=== PATIENT | male | born 1945 | race Caucasian/White ===

== ENCOUNTER 2021-10-01 08:56 | Outpatient (REF) | payer MEDICARE, SELFPAY ==
[2021-10-01 11:21] LABS: MANUAL DIFF FLAG NO
[2021-10-01 11:35] LABS: Basophils Absolute Auto 0.1 X10*3/uL (0.0-0.2); Basophils Percent Auto 0.9 % (0-2); Eosinophils Absolute Auto 0.1 X10*3/uL (0.0-0.4); Eosinophils Percent Auto 2.2 % (0-4); Hemoglobin 14.6 g/dl (14.0-18.0); Imm Gran Abs Auto 0.03 X10*3/uL (0.00-0.03); Imm Gran Pct Auto 0.6 % (0.0-0.4); Lymphocytes Percent Auto 18.1 % (20-40); Mean Corpuscular Hemoglobin 30.8 pg (27.0-33.0); Mean Corpuscular Volume 90.7 fL (80.0-98.0); Monocytes Absolute Auto 0.4 X10*3/uL (0.1-1.2); Monocytes Percent Auto 7.6 % (2-11); Neutrophils Absolute Auto 3.8 x10*3/uL (2.0-8.3); Neutrophils Percent Auto 70.6 % (45-73); Platelet Count 264 X10*3/uL (160-400); Red Blood Count 4.74 X10*6/uL (4.60-5.80); Red Cell Distribution Width 12.5 % (11.0-16.0); White Blood Count 5.4 X10*3/uL (4.8-10.8)
[2021-10-01 11:46] LABS: Alanine Aminotransferase 36 U/L (0-40); Albumin Level 4.3 g/dL (3.5-5.0); Alkaline Phosphatase 64 U/L (39-117); Anion Gap 11 (12-20); Aspartate Amino Transferase 29 U/L (5-37); Bilirubin Total 0.9 mg/dL (0.0-1.0); Blood Urea Nitrogen 12 mg/dL (9-16); Calcium 9.3 mg/dL (8.4-10.2); Carbon Dioxide 24 mmol/L (22-29); Chloride 106 mmol/L (96-108); Cholesterol 204 mg/dL; Estimated Glomerular Filt Rate > 60; Glucose Fasting 105 mg/dL (60-99); HDL Cholesterol 75 mg/dL; LDL Cholesterol Calculated 114 mg/dl; Potassium 4.2 mmol/L (3.3-5.1); Sodium 137 mmol/L (135-145); Total Protein 6.8 g/dL (6.5-8.0); Triglycerides 77 mg/dL
[2021-10-01 12:31] LABS: PSA,Total (Free>4and<10) < 0.05 ng/mL (0.00-4.00); Vitamin D 25-OH Total 59.9 ng/mL (>30)
== END 2021-10-01 08:57 | disposition home or self-care (01) ==
LOC: HO.HMGCLDS 08:56
PROVIDERS: PCP Internal Medicine; Visit Provider Internal Medicine
DX: Z00.00 Encounter for general adult medical examination without abnormal findings (principal); Z12.5 Encounter for screening for malignant neoplasm of prostate; E78.00 Pure hypercholesterolemia, unspecified; I10 Essential (primary) hypertension; R00.2 Palpitations; Z85.46 Personal history of malignant neoplasm of prostate
CPT/HCPCS: 36415; 80053; 80061; 82306; 84153; 84443; 85025

== ENCOUNTER → 2021-11-07 09:19 | Outpatient (REF) | payer MEDICARE, OTHER, SELFPAY ==
--- NOTE | 2021-11-07 09:23 | ECG_ITS ---
Test Reason : R00.2 Blood Pressure : / mmHG Vent. Rate : 078 BPM Atrial Rate : 078 BPM P-R Int : 136 ms QRS Dur : 090 ms QT Int : 348 ms P-R-T Axes : 030 055 073 degrees QTc Int : 396 ms Normal sinus rhythm Normal ECG No previous ECGs available Referred By: Robert Vu Electronically Signed By:Hermes Hayes
--- NOTE | 2021-11-07 09:24 | CA_ITS ---
Transthoracic Echocardiogram Patient (Last, First, Middle): Jordan Sales A Gender: Male Date of : 1945 Age: 76 Procedure Date: 11/07/2021 Procedure Type: Transthoracic Echocardiogram Location: OP Height: 182.88 cm Weight: 86.18 kg BSA: 2.08 m2 Heart Rate: 74 bpm BP: 130 / 70 mmHg Topographic Computator: SB Referring MD: Robert Vu DO Service Support Representative: Jose Edward MD Symptoms: R00.2 PALPITATIONS Study Quality: Adequate ECG Rhythm: Sinus Conclusions: - 1. Normal LV systolic and diastolic function 2. Mild aortic regurgitation 3. Mildly dilated ascending aorta at 4 cm 4. No pericardial effusion Findings Left Ventricle Normal left ventricular size, thickness, and systolic function. The visually estimated ejection fraction is between 60-65%. Spectral Doppler is indicative of a normal filling pattern. Peak GLS is -18.5%, within normal limits Right Ventricle Normal right ventricular cavity size and systolic function. Atria Both atria are normal in size. There is a mobile atrial septum noted. There is no evidence of interatrial shunt. Aortic Valve Normal aortic valve structure and function. There is no aortic valve stenosis. There is mild aortic valve regurgitation. Mitral Valve Normal mitral valve structure and function. There is trace mitral valve regurgitation. There is no mitral valve stenosis. Pulmonic Valve The pulmonic valve is likely normal. Tricuspid Valve Likely normal tricuspid valve structure and function. Tricuspid regurgitation envelope is inadequate for calculation of right ventricular systolic pressure. Normal right atrial pressure. Great Vessels The pulmonary artery was not well visualized. There is mild dilatation of the ascending aorta measuring 4.00 cm. Venous The inferior vena cava is normal in size and collapses greater than 50% with inspiration. Pericardium/Pleural There is no evidence of pericardial effusion. Prior Study Comparison No prior study available for comparison. Measurements 2D Linear Measurements IVSd: 1.07 0.6-0.9/0.6-1.0 cm LVIDd: 4.66 3.9-5.3/4.2-5.9 cm LVIDd Index: 2.24 2.4-3.2/2.2-3.1 cm/m2 LVIDs: 3.06 2.0-3.6 cm LVPWd: 0.76 0.7-1.1 cm LA Diam: 3.90 2.7-3.8/3.0-4.0 cm LAIDs Index: 1.88 1.5-2.3 cm/m2 LV Mass: 178.53 67-162/88-224 g LV Mass Index: 85.83 43-95/49-115 g/m2 LVOT Diam: 2.50 3.0+(-)1.3 cm 2D Systolic Function EF 4C: 64.50 >55% EF 2C: 63.90 >55% EF BiP: 64.20 >55% Mitral Valve MV Pk E: 0.76 MV PK A: 0.66 MV Decel Time: 236.00 E/A: 1.10 E'Lateral: 9.03 E'Medial: 6.20 E/E' Med: 12.20 E/E' Lat: 8.40 PHT: 69.00 MVA PHT: 3.19 Decel Hettinger: 3.21 Aortic Valve AoV Pk Andreas: 1.23 AoV Mn Andreas: 0.78 AoV VTI: 0.26 AoV Pk Grad: 6.00 Aov Mn Grad: 3.00 MARTIN Cont.VTI: 4.36 LVOT LVOT Pk Andreas: 0.99 LVOT Mn Andreas: 0.68 LVOT VTI: 0.23 LVOT Pk Grad: 4.00 LVOT Mn Grad: 2.00 LVOT Diam: 2.50 LVOT Area: 4.91 Diastolic Function MV Pk E: 0.76 MV Pk A: 0.66 E/A: 1.10 E'Medial: 6.20 E/E' Med: 12.20 E' Laterial: 9.03 E/E' Lat: 8.40 Right Ventricle TAPSE (mm): 18.00 TVS' Andreas: 8.50 Tricuspid Valve RA Press: 3.00 Great Vessels Aorta Sinus of Valsalva: 4.00 2.0-3.5 cm Ao Asc: 4.00 2.1-3.4 cm Ao Arch: 3.20 Pulmonary Valve PV Pk Andreas: 0.81 Peak PV Grad: 3.00 Updated in Other Vendor System with Status of Final Jose Edward MD electronically signed on 11/07/2021 12:09:47 PM with status of Final
--- NOTE | 2021-11-07 09:25 | HM_ITS ---
TEST PERFORMED: Cardiac event monitoring. REQUESTING PHYSICIAN: Dr. Vu. ENROLLMENT PERIOD: 11/07/2021 to 11/30/2021, 23 days. INDICATION: Palpitations. FINDINGS: In the above monitoring period, underlying rhythm is sinus. Resting rate was 76 beats per minute. There were about 4 episodes of atrial fibrillation with rapid rate noted during this time. Some areas appear to be atrial flutter with rapid rate. Ventricular rate as much as 200/min. There are some aberrantly conducted beats as well. No symptoms documented. CONCLUSION: Study positive for multiple episodes of atrial fibrillation/flutter with rapid rate. Underlying rhythm is sinus. Kevin Hadley MD HS/MODL / [id number] MTDD
== END ==
LOC: HO.CARD 09:19
PROVIDERS: PCP Internal Medicine; Visit Provider Internal Medicine
DX: R00.2 Palpitations (principal)
CPT/HCPCS: 93005; 93270; 93306

== ENCOUNTER 2023-10-23 09:40 | Day surgery (SDC) | payer MEDICARE, OTHER, SELFPAY ==
--- NOTE | 2023-10-22 10:21 | HO.ANESPROP2 ---
Documented by User: Belkis Ventura NP 10/22/23 11:39 HPI - Anesthesia Eval Consult details Narrative: 77yo M for Colonoscopy Eliquis for afib. Follows [facility]. Stable at yearly office visit 04/2023 [facility] Past Medical History Medical History Prostate cancer Afib HLD (hyperlipidemia) HTN (hypertension) Surgical History Surgical History H/O inguinal hernia repair H/O colonoscopy (~2007) History of radical prostatectomy (~2005) Social History Social History Patient Tobacco Use Status: Never used Tobacco Use of substances other than those prescribed or required for medical reasons: No Are you DNR?: No Advance Directives: No Advance Directives Information Provided: Yes Meds Allergies Allergy/AdvReac Type Severity Reaction Status Date / Time No Known Allergies Allergy Verified 10/22/23 10:24 Home Medications ?Medication ?Instructions ?Recorded ?Confirmed ?Last Taken ?Type apixaban 5 mg tablet (Eliquis) 5 mg PO BID 10/22/23 10/23/23 10/20/23 History flecainide 50 mg tablet 50 mg PO BID 10/22/23 10/23/23 10/23/23 08:30 History lisinopril 10 mg tablet 10 mg PO DAILY 10/22/23 10/22/23 Unknown History metoprolol succinate 50 mg 50 mg PO DAILY 10/22/23 10/22/23 Unknown History tablet,extended release 24 hr simvastatin 20 mg tablet 20 mg PO BEDTIME 10/22/23 10/22/23 Unknown History Assessment and Plan Assessment Anesthesia Assessment: Chart Reviewed Documented by User: Kajal Menard MD 10/23/23 10:59 [facility] Past Medical History Medical History Prostate cancer Afib HLD (hyperlipidemia) HTN (hypertension) Surgical History Surgical History H/O inguinal hernia repair H/O colonoscopy (~2007) History of radical prostatectomy (~2005) History of Problems with Anesthesia: No Social History Social History Patient Tobacco Use Status: Never used Tobacco Use of substances other than those prescribed or required for medical reasons: No Are you DNR?: No Advance Directives: No Advance Directives Information Provided: Yes Meds Allergies Allergy/AdvReac Type Severity Reaction Status Date / Time No Known Allergies Allergy Verified 10/22/23 10:24 Home Medications ?Medication ?Instructions ?Recorded ?Confirmed ?Last Taken ?Type apixaban 5 mg tablet (Eliquis) 5 mg PO BID 10/22/23 10/23/23 10/20/23 History flecainide 50 mg tablet 50 mg PO BID 10/22/23 10/23/23 10/23/23 08:30 History lisinopril 10 mg tablet 10 mg PO DAILY 10/22/23 10/22/23 Unknown History metoprolol succinate 50 mg 50 mg PO DAILY 10/22/23 10/22/23 Unknown History tablet,extended release 24 hr simvastatin 20 mg tablet 20 mg PO BEDTIME 10/22/23 10/22/23 Unknown History Exam Airway Mallampati Class: III TM Dist: >3cm Neck ROM: Full Loose/Missing/Broken Teeth: No Heart: RRR Lungs: CTA Assessment and Plan Assessment Anesthesia Assessment: Anesthesia Plan Discussed Final Anesthetic Review History of Problems with Anesthesia: No NPO: Yes ASA Class: III Final Preanesthetic Review: Meds/Allgs Chart Reviewed, Consent Obtained/Reviewed and Anes Risks/Benef Reviewed Patient Risk: Intermediate Procedure Risk: Low Anesthetic Plan Anesthetic Plan: MAC: Disposition: Standard PACU
[2023-10-23 10:30] VITALS: BMI 23.2
[2023-10-23 10:46] VITALS: BP 132/81; PULSE 57; RESP 18; TEMP 36.6; O2SAT 98
[2023-10-23] MEDS: Lactated Ringers 1,000 ML 100 ML IVCONT (10:59)
[2023-10-23 12:19] VITALS: BP 103/45; PULSE 53; RESP 16; TEMP 36.1; O2SAT 99
--- NOTE | 2023-10-23 12:19 | P.BOP_ITS ---
Brief Operative Note Date of Service: 10/23/23 Pre-op diagnosis: + Cologuard Post-op diagnosis: other (Diverticulosis) Procedure: Colonoscopy to the cecum and TI Surgeon: Robert Thomas MD Anesthesia: MAC Was an Balance And Hairspring Assembler used for this Procedure?: No Estimated blood loss (mL): 0 Pathology: none sent Condition: stable Disposition: PACU
[2023-10-23 12:34] VITALS: BP 107/46; PULSE 54; RESP 18; TEMP 36.2; O2SAT 98
--- NOTE | 2023-10-23 12:34 | OP_ITS ---
DATE OF SERVICE: 10/23/2023 SURGEON: Robert Thomas MD INDICATIONS: Patient presents for evaluation of positive Cologuard test. Full consent has been obtained from him for this, including risks of bleeding and perforation. PREOPERATIVE DIAGNOSIS: Positive Cologuard test. POSTOPERATIVE DIAGNOSIS: PROCEDURE PERFORMED: Colonoscopy to the cecum and terminal ileum. ESTIMATED BLOOD LOSS: COMPLICATIONS: ANESTHESIA: Monitored anesthesia care. ASSISTANTS: SPECIMENS: POSTOPERATIVE DIAGNOSES: Positive Cologuard test, diverticulosis, and internal hemorrhoids. DESCRIPTION OF PROCEDURE: The patient was placed in the left lateral decubitus position. The digital rectal exam revealed no abnormalities. The Olympus video pediatric colonoscope was then entered into the rectum and advanced easily to the cecum. Once in the cecum, I did identify normal-appearing cecal pouch with appendiceal orifice and a normal-appearing ileocecal valve. The terminal ileum was cannulated and appeared normal. The scope was withdrawn back in the colon. The entire cecum and ileocecal valve appeared normal. The scope was slowly withdrawn assessing all mucosal surfaces carefully. Preparation was excellent. I did not visualize any sign of polyps, colitis, nor angiodysplasias. There was a mild amount of sigmoid diverticulosis. In the rectum, scope was retroflexed, visualizing internal hemorrhoids, but no other pathology. The rectal mucosa appeared normal. The scope was straightened and withdrawn from the patient. He tolerated the procedure well and was returned to the recovery area in stable condition. IMPRESSION: 1. Diverticulosis. 2. Internal hemorrhoids. PLAN: Given today's negative exam and his age, I do not think he will need any further screening colonoscopies in the future. He will, otherwise, see me on a p.r.n. basis. He was advised to resume his Eliquis today. This has been discussed with his . MD SAURABH Up/JOHN / [id number]
--- OUTSIDE RECORDS SUMMARY | 2023-10-29 06:33 | XMS_ITS | Patient Health Record ---
Author Organization [facility] Address [address] [place] [address] Care Team Providers Care Charge Preparation Technician Name Role Phone Robert Vu DO Primary Care Provider Unavail able Robert Thomas Unavailable [phone] ALLERGIES No Known Allergies REASON FOR REFERRAL No Information MEDICATIONS Medication SIG (Take, Route, Frequency, Duration) Notes Start Date End Date Status Flecainide Acetate 50 MG Oral for 90 Active Simvastatin 20mg Act gene Lisinopril 10 MG 1 tablet Orally Once a day Active Metoprolol Succinate ER 50 MG Oral for 90 Active Eliquis 5 MG Oral for 90 Activ e IMMUNIZATIONS Vaccine Route Administration Date Status Comme nts Influenza Unknown 01/20/2023 Administered SOCIAL HISTORY Sex Assigned At : Social History Observation Description Sex Assigned At Unknown Alcohol Screen Question Answer Notes Did you have a drink contain ing alcohol in the past year? Yes How often did you have a dri nk containing alcohol in the past year? 2 to 4 times a month (2 points) How many drinks did you have on a typical day when you were drinking in the past year? 1 or 2 drinks (0 point) How often did you have 6 or more drinks on one occasion in the past year? Never (0 point) Points 2 Interpretation Negative PROBLEMS Problem Type ICD Code Onset Dates Problem Status W/U Status Risk SNOMED Code Notes Problem Colon cancer screening (Z12.11) Active confirmed Colon can cer screening (128617336) Problem Personal history of colonic polyps (Z86.010) Active confirmed History of poly p of colon (situation) (142483006) Problem Current use of watermaster anticoagulation (Z79.01) Active confirmed Long-term current use of anticoagulant (499043408) Problem Colon cancer screening declined (Z53.20) Active confirmed Colon cancer screening declined (32653039534237) Problem Positive colorectal cancer screening using Cologuard test (R19.5) Active confirmed Abnormal feces (025530412) VITAL SIGNS Temperature 97.5 degrees Fahrenheit 09/29/2023 Blood pressure diastolic 00 mm Hg 09/29/2023 Height 72.50 in 09/29/2023 Blood pressure systolic 000 mm Hg 09/29/2023 Weight 178 lbs 09/29/2023 BMI 23.81 kg/m2 09/29/2023 Encounters Encounter Location Date Provider Diagnosis [facility] [address] [place], [place] [id number] [address] [facility] [place] [phone] 09/29/2023 Robert Thomas Personal history of colonic polyps Z86.010 ; Colon cancer screening Z12.11 ; Current use of watermaster anticoagulation Z79.01 and Colon cancer screening declined Z53.[address] [place] [phone] 10/16/2023 Robert Thomas Positive colorectal cancer screening using Cologuard test R19.5 ASSESSMENTS Encounter Date Diagnosis Assessment Notes Treatment Notes Treatment Clinical Notes 09/29/2023 Colon cancer screeni ng (ICD-10 - Z12.11) 09/29/2023 Personal history of colonic polyps (ICD-10 - Z86.010) Let me know the results of the Cologuard test either way. If positive then we would want to set up a colonoscopy over the phone. 10/16/2023 Positive colorectal cancer screening using Cologuard test (ICD-10 - R19.5) 09/29/2023 Current use of fpc anticoagulation (ICD-10 - Z79.01) 09/29/2023 Colon cancer screeni ng declined (ICD-10 - Z53.20) PLAN OF TREATMENT Future Test Test Name Order Date COLONOSCOPY 07/07/2012 COLONOSCOPY 10/17/2023 Insurance Providers Payer Name Payer Address Payer Phone Subscriber Number Group Number Insured Name Patient Relationship to Insured Coverage Start Date Coverage End Date MEDICARE OF [place] [address] [place] [address] [phone] [id number] BRITTNEYGALO KEARA Leach Self - patient is the insured [employer] [address] [place] [address] [phone] [id number] KEARA HICKS Self - patient is the insured MEDICAL (GENERAL) HISTORY Medical History History ICD Code Colonoscopy 05/24/2007-hyper plastic polyp; he had a tubular adenoma removed in 2002 on his initial screening colonoscopy. Prostate cancer in 2005-had surgery as b elow Hypertension Hyperlipidema Denies CO,DM,CVA,Lung disease,renal dise ase Afib-Dr. Martinez Negative colonoscopy in 2012 Surgical History Surgery Date(Month/Year) Left inguinal hernia surgery Radical prostatectomy for cancer 2005
--- OUTSIDE RECORDS SUMMARY | 2023-10-29 06:34 | XMS_ITS | Patient Health Record ---
Author Organization [facility] Address [address] [place] [address] Care Team Providers Care Ham Sawyer Name Role Phone CASI ALEX Primary Care Provider [phone] CASI ALEX MD Unavailable Unavailable ALLERGIES No Known Allergies REASON FOR REFERRAL No Information MEDICATIONS Medication SIG (Take, Route, Frequency, Duration) Notes Start Date End Date Status Metoprolol Succinate ER 50 MG 1 tablet Orally Once a day for 90 days Active Eliquis 5 MG 1 tablet Orally Twic e a day for 90 days Active Flecainide Acetate 50 mg TAKE 1 TABLET T WICE A DAY for 90 days Active Lisinopril 10 MG 1 tablet Orally Once a day for 90 days Active Simvastatin 20 MG 1 tablet in the even ing Orally Once a day for 90 days Active SOCIAL HISTORY Sex Assigned At : Social History Observation Description Sex Assigned At Unknown PROBLEMS Problem Type ICD Code Onset Dates Problem Status W/U Status Risk SNOMED Code Notes Problem Mixed hyperlipidemia (E78.2) Active confirmed Mixed hyperlipidemia (114791416) On statin Problem Essential (primary) hypertension (I10) Active confirmed Essential hypertension (63233615) Controlled on current medical therapy Problem Other specified cardiac arrhythmias (I49.8) Active confirmed Cardiac arrhythmia (115263806) Problem PAF (paroxysmal atrial fibrillation) (I48.0) Active confirmed Atrial fibrillation (66114518) On anticoagulation with Eliquis VITAL SIGNS Heart Rate 65 /min 09/07/2023 Blood pressure diastolic 64 mm Hg 09/07/2023 Height 73 in 09/07/2023 Blood pressure systolic 126 mm Hg 09/07/2023 Weight 171 lbs 09/07/2023 BMI 22.56 kg/m2 09/07/2023 Encounters Encounter Location Date Provider Diagnosis [facility] [address] [place] [address] 03/06/2023 CASI ALEX [facility] [address] [place] [address] 03/13/2023 CASI ALEX Essential (primary) hypertension I10 ; PAF (paroxysmal atrial fibrillation) I48.0 ; Mixed hyperlipidemia E78.2 and Ascending aortic aneurysm, unspecified whether ruptured I71.21 [facility] [address] [place] [address] 09/07/2023 CASI ALEX Essential (primary) hypertension I10 ; PAF (paroxysmal atrial fibrillation) I48.0 ; Mixed hyperlipidemia E78.2 and Ascending aortic aneurysm, unspecified whether ruptured I71.21 ASSESSMENTS Encounter Date Diagnosis Assessment Notes Treatment Notes Treatment Clinical Notes 03/13/2023 Essential (primary) hypertension (ICD-10 - I10) Controlled on current medical therapy 09/07/2023 Essential (primary) hypertension (ICD-10 - I10) Controlled on current medical therapy 09/07/2023 PAF (paroxysmal atrial fibrillation) (ICD-10 - I48.0) On anticoagulation with Eliquis 03/13/2023 PAF (paroxysmal atrial fibrillation) (ICD-10 - I48.0) On anticoagulation with Eliquis 03/13/2023 Mixed hyperlipidemia (ICD-10 - E78.2) On statin 09/07/2023 Mixed hyperlipidemia (ICD-10 - E78.2) On statin 09/07/2023 Ascending aortic aneurysm, unspecified whether ruptured (ICD-10 - I71.21) 4 cm on echo 03/13/2023 Ascending aortic aneurysm, unspecified whether ruptured (ICD-10 - I71.21) 4 cm on echo PLAN OF TREATMENT Next Appt Details Provider Name:CASI Terry, 02/29/2024 01:15:00 PM, [address], [place], [address], Insurance Providers Payer Name Payer Address Payer Phone Subscriber Number Group Number Insured Name Patient Relationship to Insured Coverage Start Date Coverage End Date MEDICARE PART B [address] [address] [place] [phone] [id number] Jordan Morales i Self - patient is the insured 1 [employer] [address] [place] [address] [id number] Jordan Morales i Self - patient is the insured MEDICAL (GENERAL) HISTORY Medical History History ICD Code HTN PAF, HPL Nuclear stress test done in July 2022 e vidence of any ischemia Surgical History Surgery Date(Month/Year) Prostate removal, hernia repair, knee me niscus Hospitalization History Reason Date(Month/Year) as above
--- OUTSIDE RECORDS SUMMARY | 2023-10-29 06:34 | XMS_ITS | Continuity of Care Document ---
Author Organization [facility] Address [address] [place] [address]- Care Team Providers Care Open Hearth Stockyard Supervisor Name Role Phone Robert Vu DO Primary Care Physician [place] [facility] [place]s): 02/18[place]22 - 03/20/22 [facility] [address] [place] [address]- Attending Physician: Morgan Floyd Admitting Physician: Morgan Floyd Referring Physician: Morgan Floyd Note * Event Display: EKG Non BH Authored Date: * Event Display: Non BH Cardiovascular Results Authored Date: Patient Care team information Care Team Personnel Name: Robert Vu DO Position: Reference Physician Member Role: PCP Address: Address: [address] [place] [address] [place] [address]
--- OUTSIDE RECORDS SUMMARY | 2023-10-29 06:34 | XMS_ITS | Continuity of Care Document ---
Author Organization [facility] Address [address] [place] [address] Care Team Providers Care Engineering Test Specialist Name Role Phone Robert Vu DO Primary Care Physician Encounter [facility] R [id number] Date(s): 11/26/21 - 03/20/22 [facility] [address] [place] [address]- Attending Physician: Radha Mcmahan MD Referring Physician: Robert Vu DO Patient Care team information Care Team Personnel Name: Robert Vu DO Position: Reference Physician Member Role: PCP Address: Address: [address] [place] [address] Robert Vu MD [place], [place] [address]
--- OUTSIDE RECORDS SUMMARY | 2023-10-29 06:34 | XMS_ITS | Patient Health Record ---
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 Name Role Phone MirellaRobert parsons Primary Care Provider ALLERGIES No Known Allergies RESULTS Component Value Reference Range Notes COLOGUARD Reviewed date:10/16/2023 09:59:23 AM Interpretation:Positive Performing Lab: Notes/Report: Positive Result Complete Blood Count Auto Di ff Reviewed date:10/27/2023 12:35:54 PM Interpretation:Abnormal Performing Lab:[facility], [address] [place] [phone] Notes/Report: White Blood Count 5.9 4.8-10.8 X10*3/uL Red Blood Count 4.51 4.60-5.80 X10*6/uL Hemoglobin 14.5 14.0-18.0 g/dl Hematocrit 40.8 42.0-52.0 % Mean Corpuscular Volume 90.5 80.0-98.0 fL Mean Corpuscular Hemoglobin 32.2 27.0-33.0 pg Mean Corpuscular HGB Conc 35.5 31.0-36.0 g/dl Red Cell Distribution Width 12.4 11.0-16.0 % Platelet Count 264 160-400 X10*3/uL Mean Platelet Volume 9.8 9.4-12.4 fL Neutrophils Percent Auto 67.8 45-73 % Imm Gran Pct Auto 0.3 0.0-0.4 % Lymphocytes Percent Auto 19.1 20-40 % Monocytes Percent Auto 8.5 2-11 % Eosinophils Percent Auto 3.6 0-4 % Basophils Percent Auto 0.7 0-2 % NRBC Pct Auto 0.0 0.0-0.2 /100WBC Neutrophils Absolute Auto 4.0 2.0-8.3 x10*3/u L Imm Gran Abs Auto 0.02 0.00-0.03 X10*3/uL Lymphocytes Absolute Auto 1.1 1.2-4.9 X10*3/u L Monocytes Absolute Auto 0.5 0.1-1.2 X10*3/uL Eosinophils Absolute Auto 0.2 0.0-0.4 X10*3/u L Basophils Absolute Auto 0.0 0.0-0.2 X10*3/uL NRBC Abs Auto 0.000 0.0-0.012 X10*3/uL Liver Panel Reviewed date:10/27/2023 01:09:39 PM Interpretation:Normal Performing Lab:[facility], [address] [place] [phone] Notes/Report: Bilirubin Total 0.7 0.0-1.0 mg/dL Bilirubin Direct 0.3 0.0-0.5 mg/dL Aspartate Amino Transferase 24 5-37 U/L Alanine Aminotransferase 21 0-40 U/L Total Protein 6.6 6.5-8.0 g/dL Albumin Level 4.2 3.5-5.0 g/dL Alkaline Phosphatase 64 39-117 U/L Basic Metabolic Panel Fastin g Reviewed date:10/27/2023 01:09:39 PM Interpretation:Normal Performing Lab:[facility], [address] [place] [phone] Notes/Report: Sodium 139 135-145 mmol/L Potassium 4.1 3.3-5.1 mmol/L Chloride 103 96-108 mmol/L Carbon Dioxide 26 22-29 mmol/L Anion Gap 14 12-20 Blood Urea Nitrogen 13 9-16 mg/dL Creatinine 0.78 0.5-1.4 mg/dL Estimated Glomerular Filt Rate > 60 NOTE: For -[place] individuals, multiply the result by 1.210. Chronic Kidney Disease: Estimated GFR < 60 mL/min/1.73m2 Severe Kidney Disease: Estimated GFR < 15 mL/min/1.73m2 Glucose Fasting 83 60-99 mg/dL Calcium 9.4 8.4-10.2 mg/dL Lipid Panel Reviewed date:10/27/2023 01:09:39 PM Interpretation:Normal Performing Lab:[address] [phone] Notes/Report: Triglycerides 86 <150 mg/dL Desirable Triglyceride: less than 150 mg/dL Borderline High Triglyceride 150-199 mg/dL High Triglyceride: 200-499 mg/dL Very High Triglyceride: greater than or equal to 5OO mg/dL Cholesterol 199 <200 mg/dL Desirable Cholesterol: less than 200 mg/dL Borderline High Cholesterol: 200-239 mg/dL High Cholesterol: greater than 239 mg/dL LDL Cholesterol Calculated 115 <100 mg/dL Desirable LDL: less than 100 mg/dL Near Optimal/Above Optimal LDL: 110-129 mg/dL Borderline High LDL: 130-159 mg/dL High LDL: 160-189 mg/dL Very High LDL: greater than or equal to 190 mg/dL HDL Cholesterol 67 >40 mg/dL Desirable HDL: greater than 40 mg/dL Note: This HDL assay may give artificially low results in patients with liver disease. Prostate Specific Antigen Reviewed date:10/27/2023 01:09:39 PM Interpretation:Undetectable Performing Lab:[address] [phone] Notes/Report: Prostate Specific Antigen < 0.10 <0.05-4.0 ng/mL PSA methodology: Jordan Alinity i Chemiluminescent Microparticle Immunoassay (CMIA) TSH reflex Free T4 Reviewed date:10/27/2023 01:09:39 PM Interpretation:Normal Performing Lab:[address] [phone] Notes/Report: TSH reflex Free T4 0.89 0.32-4.0 uIU/mL REASON FOR REFERRAL No Information MEDICATIONS Medication SIG (Take, Route, Frequency, Duration) Notes Start Date End Date Status Eliquis 5 MG 1 tablet Orally Twic e a day Active Metoprolol Succinate ER 50 MG 1 tablet Orally Once a day Active Vitamin D (Cholecalciferol) 25 MCG (1000 UT) 1 capsule Orally Once a day Active Lisinopril 10 MG 1 tablet Orally Once a day Active Ocuvite 1 tablet Orally Once a day Active Simvastatin 20 mg 1 tablet in the even ing Orally Once a day for 90 days Active Multivitamins 1 tablet Orally Once a day Active Ginkgo Biloba 120 MG 1 capsule Orally On ce a day Active Simvastatin 20 MG 1 tablet in the even ing Orally Once a day for 30 day(s) 09/23/2023 Active Flecainide Acetate 50 MG 1 tablet Orally Twice a day Active IMMUNIZATIONS Vaccine Route Administration Date Status Comme nts Influenza Unknown 03/10/2011 Administered Pneumococcal - PPSV23 IM Intramuscular 03/19/2011 Administ ered Influenza Unknown 03/07/2013 Administered Zoster Vaccine SC Subcutaneous 12/15/2014 Administered PCV 13 IM Intramuscular 11/07/2015 Administered Influenza Quad IM Intramuscular 03/26/2016 Administered Influenza High Dose IM Intramuscular 01/07/2018 Administer ed Influenza High Dose IM Intramuscular 02/01/2019 Administer ed Shingrix Unknown 03/22/2019 Administered Shingrix Unknown 01/01/2019 Administered Influnza High Dose Quad Unknown 01/18/2020 Administered Flu-aIIV4 Unknown 01/22/2021 Administered Influenza High Dose Unknown 01/27/2017 Administered Influenza High Dose IM Intramuscular 01/28/2022 Administer ed COVID-19 Pfizer Bivalent Unknown 02/05/2022 Administere d SOCIAL HISTORY Tobacco Use: Social History Observation Description Date Details (start date - stop date) Never Smoker NA - NA Sex Assigned At : Social History Observation Description Sex Assigned At Unknown Tobacco Use/Smoking Question Answer Notes Patient is a nonsmoker Additional Findings: Tobacco Non-User Cu rrent non-smoker, currently using no form of tobacco Alcohol Screen Question Answer Notes Did you have a drink contain ing alcohol in the past year? Yes How often did you have a dri nk containing alcohol in the past year? Monthly or less (1 point) How many drinks did you have on a typical day when you were drinking in the past year? 1 or 2 drinks (0 point) How often did you have 6 or more drinks on one occasion in the past year? Never (0 point) Points 1 Interpretation Negative PROBLEMS Problem Type ICD Code Onset Dates Problem Status W/U Status Risk SNOMED Code Notes Problem Paroxysmal atrial fibrillation (I48.0) Active confirmed 879576315 Problem Palpitations (R00.2) Active confirmed 8 2696221 Problem Essential hypertensi on (I10) Active confirmed 30073130 Problem History of prostate cancer (Z85.46) Active confirmed 085152303 Problem Hypercholesterolemia (E78.00) Active confirmed 13698790 Encounters Encounter Location Date Provider Diagnosis Robert Vu DO, [address] [id number] 11/18/2022 Robert Vu DO, [address] [id number] 12/09/2022 Robert Vu Paroxysmal atrial fibrillation I48.0 ; Essential hypertension I10 and Hypercholesterolemia E78.00 Robert Vu DO, [address] [id number] 09/23/2023 Robert uV Paroxysmal atrial fibrillation I48.0 ; Essential hypertension I10 ; Hypercholesterolemia E78.00 and History of prostate cancer Z85.46 Robert Vu DO, [address] [id number] 11/17/2022 Robert Vu DO, [address] [id number] 09/29/2023 Robert Vu Colon cancer screeni ng Z12.11 Robert Vu DO, [address] [id number] 10/16/2023 Robert Vu ASSESSMENTS Encounter Date Diagnosis Assessment Notes Treatment Notes Treatment Clinical Notes 12/09/2022 Paroxysmal atrial fibrillation (ICD-10 - I48.0) 12/09/2022 Essential hypertensi on (ICD-10 - I10) 09/23/2023 Paroxysmal atrial fibrillation (ICD-10 - I48.0) Follow up with Cardiology 09/23/2023 Essential hypertensi on (ICD-10 - I10) 09/29/2023 Colon cancer screeni ng (ICD-10 - Z12.11) 12/09/2022 Hypercholesterolemia (ICD-10 - E78.00) 09/23/2023 Hypercholesterolemia (ICD-10 - E78.00) 09/23/2023 History of prostate cancer (ICD-10 - Z85.46) PLAN OF TREATMENT Pending Test Test Name Order Date CBC With Differential/Platelet PSA, total 09/23/2023 Liver Panel 09/23/2023 Basic Metabolic Panel Fasting 09/23/2023 Lipid Panel 09/23/2023 TSH reflex Free T4 09/23/2023 Next Appt Details Provider Name:Robert davis, 03/29/2024 10:30:00 AM, [address] [place] [address], [id number], Insurance Providers Payer Name Payer Address Payer Phone Subscriber Number Group Number Insured Name Patient Relationship to Insured Coverage Start Date Coverage End Date MEDICARE [address] ROBERT QUINTERO [id number] [employer]francisco Jordan palafox Self - patient is the insured FOR LIFE [address] [place] [address] [id number] Hufrancisco Jordan palafox Self - patient is the insured [address] [address] [id number] Jordan Morales i Self - patient is the insured 8 9 MEDICAL (GENERAL) HISTORY Medical History History ICD Code hypertension hypercholesterolemia benign prostatic hyperplasia (BPH) prostate cancer tubular adenoma Palpitations R00.2 Paroxysmal atrial fibrillation I48.0 Surgical History Surgery Date(Month/Year) vasectomy herniorraphy, left prostatectomy, radical, nerv e sparing technique, frontal approach with suprapubic vertical incision left knee arthroscopy 03/2018
== END 2023-10-23 12:55 | disposition home or self-care (01) ==
PROVIDERS: PCP Internal Medicine; Visit Provider Internal Medicine
PROC: 0DJD8ZZ Inspection of Lower Intestinal Tract, Via Natural or Artificial Opening Endoscopic (ICD-10-PCS; CPT 45378; principal; 2023-10-23 11:10)
DX: R19.5 Other fecal abnormalities (principal); Z86.010 Personal history of colon polyps; K57.30 Diverticulosis of large intestine without perforation or abscess without bleeding; K64.8 Other hemorrhoids; I48.91 Unspecified atrial fibrillation; I10 Essential (primary) hypertension; Z79.01 Long term (current) use of anticoagulants; Z79.899 Other long term (current) drug therapy; Z85.46 Personal history of malignant neoplasm of prostate
CPT/HCPCS: 45378; J2704

== ENCOUNTER 2023-10-27 09:14 | Outpatient (REF) | payer MEDICARE, OTHER, SELFPAY ==
[2023-10-27 11:26] LABS: MANUAL DIFF FLAG NO
[2023-10-27 11:53] LABS: Basophils Percent Auto 0.7 % (0-2); Eosinophils Absolute Auto 0.2 X10*3/uL (0.0-0.4); Eosinophils Percent Auto 3.6 % (0-4); Hematocrit 40.8 % (42.0-52.0); Hemoglobin 14.5 g/dl (14.0-18.0); Imm Gran Abs Auto 0.02 X10*3/uL (0.00-0.03); Imm Gran Pct Auto 0.3 % (0.0-0.4); Lymphocytes Absolute Auto 1.1 X10*3/uL (1.2-4.9); Lymphocytes Percent Auto 19.1 % (20-40); Mean Corpuscular HGB Conc 35.5 g/dl (31.0-36.0); Mean Corpuscular Hemoglobin 32.2 pg (27.0-33.0); Mean Corpuscular Volume 90.5 fL (80.0-98.0); Mean Platelet Volume 9.8 fL (9.4-12.4); Monocytes Absolute Auto 0.5 X10*3/uL (0.1-1.2); Monocytes Percent Auto 8.5 % (2-11); Neutrophils Percent Auto 67.8 % (45-73); Platelet Count 264 X10*3/uL (160-400); Red Blood Count 4.51 X10*6/uL (4.60-5.80); Red Cell Distribution Width 12.4 % (11.0-16.0); White Blood Count 5.9 X10*3/uL (4.8-10.8)
[2023-10-27 12:44] LABS: Alanine Aminotransferase 21 U/L (0-40); Albumin Level 4.2 g/dL (3.5-5.0); Alkaline Phosphatase 64 U/L (39-117); Anion Gap 14 (12-20); Aspartate Amino Transferase 24 U/L (5-37); Bilirubin Direct 0.3 mg/dL (0.0-0.5); Bilirubin Total 0.7 mg/dL (0.0-1.0); Blood Urea Nitrogen 13 mg/dL (9-16); Calcium 9.4 mg/dL (8.4-10.2); Carbon Dioxide 26 mmol/L (22-29); Chloride 103 mmol/L (96-108); Cholesterol 199 mg/dL (<200); Estimated Glomerular Filt Rate > 60; Glucose Fasting 83 mg/dL (60-99); HDL Cholesterol 67 mg/dL (>40); LDL Cholesterol Calculated 115 mg/dL (<100); Potassium 4.1 mmol/L (3.3-5.1); Sodium 139 mmol/L (135-145); Total Protein 6.6 g/dL (6.5-8.0); Triglycerides 86 mg/dL (<150)
[2023-10-27 12:47] LABS: TSH reflex Free T4 0.89 uIU/mL (0.32-4.0)
[2023-10-27 12:49] LABS: Prostate Specific Antigen < 0.10 ng/mL (<0.05-4.0)
== END 2023-10-27 09:15 | disposition home or self-care (01) ==
LOC: HO.HMGCLDS 09:14
PROVIDERS: PCP Internal Medicine; Visit Provider Internal Medicine
DX: I48.0 Paroxysmal atrial fibrillation (principal); I10 Essential (primary) hypertension; E78.00 Pure hypercholesterolemia, unspecified; Z85.46 Personal history of malignant neoplasm of prostate; Z12.5 Encounter for screening for malignant neoplasm of prostate
CPT/HCPCS: 36415; 80048; 80061; 80076; 84153; 84443; 85025

== ENCOUNTER 2024-10-06 12:55 | Outpatient (AMB) | payer MEDICARE, OTHER, SELFPAY ==
[2024-10-06 13:00] VITALS: BP 135/66; PULSE 60; RESP 14; TEMP 36.6; O2SAT 99; BMI 23.7
--- NOTE | 2024-10-06 13:00 | A.OFFPC_ITS ---
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 Accompanied by: Self / Same As Patient Allergies No Known Allergies Allergy (Verified 10/06/24 13:18) Medication List - Last Reconciled 10/06/24 by Cary Chris PA-C apixaban (Eliquis) 5 mg PO BID flecainide 50 mg PO BID lisinopril 10 mg PO DAILY metoprolol succinate ER 50 mg PO DAILY simvastatin 20 mg PO BEDTIME Tobacco use date assessed: 10/06/24 Fall risk assessment: No Falls in past year Last assessed Fall Risk: 10/06/24 Dental Screening Dental Screen Date: 10/06/24 Did you have a dental visit in the last 12 months?: Yes Did you have a dental problem in the last 6 months where you did not have access to dental care?: No Was dental information given to patient?: Patient has dentist HPI 6 month follow up HPI Details The patient is a 78-year-old male presenting for an initial visit to establish care following his previous physician's residential. His medical history is significant for atrial fibrillation, managed with Eliquis and flecainide, and prostate cancer, for which he had a radical prostatectomy in 2005. The patient's history includes controlled hypertension and hyperlipidemia, managed with lisinopril and simvastatin, respectively. He was informed of mild anemia during blood work conducted in October 2023, though described as not clinically concerning at the time, and expresses understanding facilitated through regular monitoring. The patient acknowledges experiencing transient anxiety-induced hypertension during physician visits, historically a benign condition without sequela. Despite having previously been advised on blood pressure control, he now self- monitors and corroborates readings with multiple sources, including the [facility] and office administrator consultations, to assure consistency. His plan to obtain updated blood work, including hemoglobin A1c and potassium levels as a part of routine checks, underscores an ongoing commitment to managing cardiovascular risk factors within recommended guidelines. Social History - Spends winter in [place], living with his . - Visits family: two sons live in [facility] and [place]. - Assumed insurance coverage through the [facility] 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 - Maintains home blood pressure monitori ng. - Engaged in travel and lifestyle activi ties promoting social engagement. [facility] Medical History (Updated 10/06/24 @ 13:49 by Cary Chris PA-C) Anemia Full code status (~10/06/24) BPH (benign prostatic hyperplasia) Establishing care with new doctor, encounter for Prostate cancer Afib HLD (hyperlipidemia) HTN (hypertension) Surgical History H/O inguinal hernia repair H/O colonoscopy (~10/23/23) History of radical prostatectomy (~2005) Family History Father No problems noted. Mother No problems noted. Social History Housing: Condominium Alcohol intake: current Alcohol intake frequency: holidays/special occasions only Patient Tobacco Use Status: Never used Tobacco service: Yes Current occupational status: retired Cognitive needs: No Hearing needs: Yes (b/l hearing aids) Vision needs: Yes (rx glasses) Questionnaire PHQ-9 Over the last 2 weeks, how often have you been bothered by any of the following problems? 1. Little interest or pleasure in doing things: not at all 2. Feeling down, depressed, or hopeless: not at all 3. Trouble falling or staying asleep, or sleeping too much: not at all 4. Feeling tired or having little energy: not at all 5. Poor appetite or overeating: not at all 6. Feeling bad about yourself - or that you are a failure or have let yourself or your family down: not at all 7. Trouble concentrating on things, such as reading the newspaper or watching television: not at all 8. Moving or speaking so slowly that other people could have noticed. Or the opposite - being so fidgety or restless that you have been moving around a lot more than usual: not at all 9. Thoughts that you would be better off or of hurting yourself in some way: not at all Total score: 0 Depression Screening Interpretation: Negative Depression Screening Done: Yes 60676 - PHQ-9 Billing: Yes Source: Developed by Drs. Robert Chen, Lilibeth Pryor, Armand Westbrook and colleagues, with an educational beto from [employer]. Thrive Questionnaire Date Thrive assessed: 10/06/24 I am a: Patient What is your living situation today?: I have a steady place to live Within the past 12 months, did the food you bought not last and you didn't have the money to get more?: Never true Within the past 12 months, did you worry whether your food would run out before you got money to buy more?: Never true Do you have trouble paying for medicines?: No Do you have trouble getting transportation to medical appointments?: No Do you have trouble paying your heating and electricity bill?: No Do you have trouble taking care of your child, family member or friend?: No Do you have trouble with day-to-day activities such as bathing, preparing meals, shopping, managing finances, etc.?: No Are you currently unemployed and looking for a job?: No Are you interested in more education?: No Please select the resources that you would like help with: None THRIVE Score: 0 AUDIT C Alcohol Use Questionnaire (AUDIT-C) 1. How often do you have a drink containing alcohol?: Monthly or less 2. How many drinks containing alcohol do you have on a typical day when you are drinking?: 1 or 2 3. How often do you have six or more drinks on one occasion?: Never Total Score: 1 Score Reviewed/Action Taken: No TONY-7 AMB Questionnaire TONY-7 Date TONY - 7 assessed: 10/06/24 Feeling nervous, anxious, or on edge: 0 = Not at all Not being able to stop or control worryin = Not at all Worrying too much about different things: 0 = Not at all Trouble relaxin = Not at all Being so restless that it is hard to sit still: 0 = Not at all Becoming easily annoyed or irritable: 0 = Not at all Feeling afraid as if something awful might happen: 0 = Not at all Total TONY-7 score (0-4 normal; 5-9 mild; 10-14 moderate; 15-21 severe): 0 Source: Developed by Lilibeth May, Armand Westbrook and colleagues, with an educational beto from [employer]. TONY-7 Assessment Billing TONY-7 Assessment Tool: TONY-7 Assessment 07831 Review of Systems Const Details: - Cardiovascular: Reports historical anxiety-related hypertension. Denies chest pain, shortness of breath. - Gastrointestinal: Denies nausea, vomiting, abdominal pain, black or bloody stools. - Musculoskeletal: Denies falls. - General: Reports historical anxiety during doctor visits. Denies unintentional weight loss. Physical exam (Primary Care) Vital Signs: Last Vital Signs Temp 97.9 F 10/06/24 13:00 Pulse 60 10/06/24 13:00 Resp 14 10/06/24 13:00 BP 152/66 H 10/06/24 13:00 Pulse Ox 99 10/06/24 13:00 Oxygen Delivery Method Room Air 10/06/24 13:00 Care Plan Goal for BP management: <140/90 at Goal BMI result Body Mass Index 23.7 normal bmi Tobacco/Smoking Status: Tobacco use Status Tobacco use date assessed 10/06/24 10/06/24 13:09 Patient Tobacco Use Status Never used Tobacco 10/06/24 13:09 PHQ-9: PHQ-9 Score PHQ-9: Total score 0 10/06/24 13:09 Depression Screening Interpretation: Negative Thrive Assessment: Date of Thrive Assessment Date Thrive assessed 10/06/24 10/06/24 13:09 Advance Care Planning discussion: Completed/Scanned Date of discussion: 10/06/24 Who was present: Patient, Cary FANTA Forms completed: MOLST Time spent: 1-15 minutes, not on file Actual minutes spent: 15 Did not discuss due to Cultural/Spiritual beliefs: No Const Other: Appearance: Alert. Oriented X3. No acute distress. Head: Normal external exam. Normocephalic. Atraumatic. Eyes: Pupils are equal, round, and reactive to light. Extraocular movements intact. Conjunctiva and sclera normal. Eyelids normal. Ears: External auditory canal normal. Tympanic membranes normal. Throat: Pharynx normal. Uvula midline. Moist mucous membranes. Neck: Normal inspection. Neck supple. Full range of motion. No adenopathy. Thyroid Normal. No meningeal signs. No neck mass noted. Cardiovascular: Normal heart rate and rhythm. Heart sound normal. No murmurs noted. Pulses normal throughout. Respiratory: No respiratory distress. Painless inspiration. Breath sounds normal. No wheezes/rales/rhonchi noted. Chest nontender. No accessory muscle usage noted or decreased air movement noted. Abdomen: Soft and nontender. Bowel sounds normal in all 4 quadrants. No distention noted. No organomegaly noted. No visible injury noted. Back: No costovertebral angle tenderness. Full range of motion noted. Skin: Skin warm and dry. Normal skin color. Normal skin turgor. No rashes/lesions/lacerations noted. Extremities: No lower extremity edema. Extremities exhibit normal range of motion. Extremities nontender. Neuro: Oriented X 3. No motor deficit. No sensory deficit. Reflexes normal. Results Reviewed Results Reviewed: - Labs: Prior RBC count of 4.51 indicating mild anemia; cholesterol levels within managed range but close to upper limit of normal. - Blood glucose fasting levels previously measured at 83. Coding Level of Care Code New Pt Level 4 (72545) Complex EM visit Add On G2211 Diagnoses Establishing care with new doctor, encounter for Z76.89 HTN (hypertension) I10 HLD (hyperlipidemia) E78.5 Afib I48.91 Prostate cancer C61 BPH (benign prostatic hyperplasia) N40.0 Full code status Z78.9 Anemia D64.9 Additional Codes PHQ-9 - 98058 - PHQ-9 Billing: Yes ([id number]) TONY-7 Assessment Billing - TONY-7 Assessment Tool: TONY-7 Assessment 80898 ([id number]) Vital Signs *Quality* - Advance Care Planning discussion: Completed/Scanned ([id number]) Vital Signs *Quality* - Time spent: 1-15 minutes, not on file ([id number]) Time Spent (min) 60 Assessment & Plan Assessment & Plan (1) Establishing care with new doctor, encounter for: Code(s): Z76.89 - Persons encountering health services in other specified circumstances Category: Medical (2) HTN (hypertension): Code(s): I10 - Essential (primary) hypertension Category: Medical Plan: The condition is managed with Eliquis and flecainide. Continued adherence to medications and follow-up with cardiology are advised. Condition is chronic and stable continue to monitor. (3) HLD (hyperlipidemia): Code(s): E78.5 - Hyperlipidemia, unspecified Category: Medical Plan: Controlled with simvastatin. Routine lipid profile checks recommended. Condition is chronic and stable continue to monitor. (4) Afib: Code(s): I48.91 - Unspecified atrial fibrillation Category: Medical Plan: The condition is managed with Eliquis and flecainide. Continued adherence to medications and follow-up with cardiology are advised. IS CHRONIC AND STABLE CONTINUE TO MONITOR. (5) Prostate cancer: Code(s): C61 - Malignant neoplasm of prostate Category: Medical Plan: Past radical prostatectomy. Active surveillance with regular PSA monitoring. Condition is chronic and stable will continue to monitor. (6) BPH (benign prostatic hyperplasia): Code(s): N40.0 - Benign prostatic hyperplasia without lower urinary tract symptoms Category: Medical Plan: Condition is chronic and stable continue to monitor. (7) Full code status: Onset Date: ~10/06/24 Code(s): Z78.9 - Other specified health status Category: Medical Plan: Patient decided to be a full code today. Molst form filled out while patient in office. (8) Anemia: Code(s): D64.9 - Anemia, unspecified Category: Medical Plan: Mild anemia noted, with repeat blood work planned to rule out underlying causes. Condition is chronic and stable continue to monitor. Plan Plan Patient was informed and verbally consented to the use of an ambient scribe for clinic note documentation during this visit. 1. Atrial Fibrillation The condition is managed with Eliquis and flecainide. Continued adherence to medications and follow-up with cardiology are advised. 2. Hypertension Managed through lisinopril and metoprolol, with stable readings in home and clinical settings. No immediate changes needed. 3. History Of Prostate Cancer Past radical prostatectomy. Active surveillance with regular PSA monitoring. 4. Hyperlipidemia Controlled with simvastatin. Routine lipid profile checks recommended. 5. Anemia Mild Mild anemia noted, with repeat blood work planned to rule out underlying causes. 6. Anxiety Recognized anxiety exacerbating blood pressure at visits. Suggested lifestyle modifications to address anxiety and improve patient response in healthcare settings. During the visit, I discussed the current management plan for each of the patient?s conditions, emphasizing compliance and regular monitoring for atrial fibrillation, hypertension, and lipid management. We thoroughly reviewed the benefits and implications of continuing Eliquis and flecainide, noting their critical role in maintaining rhythm control and mitigating stroke risk. The patient was encouraged to maintain his current medication regimen, addressing any potential coordination issues with the office administrator pertaining to flecainide prescriptions. I provided reassurance regarding his mild anemia, describing it as clinically benign, and emphasized the importance of routine blood checks to preclude progressive anemia. For anxiety-induced episodic hypertension, lifestyle and relaxation techniques were suggested. I clarified the general intention of CPR and intubation policies, soliciting informed patient preferences regarding full code status. Moreover, I addressed potential adverse events related to interventions like intubation and feeding tubes and garnered consent based on patient familial consultations. Follow-up adherence with the cardiology regimen and engagement with scheduled lab tests were advised to substantiate our treatment's efficacy and enable progressive health optimization over subsequent encounters. Orders: Orders Comprehensive [place]. Panel Fast Today Z00.00 - Encounter for general adult medical examination without abnormal findings C Reactive Protein Today Z00.00 - Encounter for general adult medical examination without abnormal findings Lipid Panel Today Z00.00 - Encounter for general adult medical examination without abnormal findings Magnesium Today Z00.00 - Encounter for general adult medical examination witho ut abnormal findings Vitamin B12 and Folate Today Z00.00 - Encounter for general adult medical examination without abnormal findings PSA,Total (Free>4and<10) Today Z00.00 - Encounter for general adult medical examination without abnormal findings TSH reflex Free T4 Today Z00.00 - Encounter for general adult medical ex amination without abnormal findings Complete Blood Count Auto Diff Today Z00.00 - Encounter for general adult medical examination without abnormal findings Hemoglobin A1c Today Z00.00 - Encounter for general adult medical examination without abnormal findings Ferritin Today D64.9 - Anemia, unspecified IRON PROFILE Today D64.9 - Anemia, unspecified Liver Panel Today Z00.00 - Encounter for general adult medical examination without abnormal findings Vitamin D 25-OH Total Today Z00.00 - Encounter for general adult medical examination without abnormal findings Medications: Changed From flecainide 50 mg PO BID To flecainide 50 mg PO BID 90 days 180 tabs 3RF Patient Instructions: - Continue taking all prescribed medications, including Eliquis, flecainide, lisinopril, metoprolol, and simvastatin. - Schedule blood work as discussed, including CBC, CMP, hemoglobin A1c and lipid profile. - Record and monitor blood pressure at home. Take readings at rest and avoid measuring immediately after activity or stress. - Maintain regular follow-up appointments with cardiology and consider yearly check-ups along with scheduled [facility] visits. - Keep healthcare proxy documents and pertinent medical paperwork updated and accessible. - Engage in regular physical activity and maintain a balanced diet to support cardiovascular health. - Consider stress-reduction techniques if anxiety persists, especially during medical evaluations. - Seek medical attention if experiencing any new or worsening symptoms, such as severe chest pain or shortness of breath. - Proceed with scheduled laboratory tests to monitor cholesterol, blood cell c ounts, and kidney function.
--- OUTSIDE RECORDS SUMMARY | 2024-10-06 15:00 | XMS_ITS | Clinical Summary ---
Author Organization [facility] Address [address] [place] [address] Care Team Providers Care Cyber Security Instructor Name Role Phone Robert Vu DO Primary Care Provider [phone] Allergies No known active allergies Medications flecainide (TAMBOCOR) 50 mg tablet Take 1 Tablet by mouth 2 times daily. Active lisinopriL (PRINIVIL,ZESTRI L) 10 mg tablet Take 1 Tablet by mouth daily. Active metoprolol succinate (TOPROL-XL) 50 mg 24 hr tablet Take 50 mg by mouth daily. Active simvastatin (ZOCOR) 20 mg tablet Take 1 Tablet by mouth at bedtime. Active apixaban (ELIQUIS) 5 mg tablet Take 5 mg by mouth 2 Times Daily. Active Active Problems Problem Noted Date Diagnosed Date Bradycardia 04/16/2023 Bruit of right carotid artery 04/16/2023 Overview (05/30/2024): Last Assessment & Plan: The patient was noted to have a faint right-sided carotid bruit on exam today which is new for this patient. We discussed checking a carotid duplex for further evaluation of this; the patient would like to proceed with this test however he would like to delay it until he is back from [place] in September 2023. I have placed an order for this to be scheduled within that timeframe. We will continue statin as ordered and readdress as needed; his PCP checks cholesterol once per year and the patient reports that he has an appointment scheduled with him on his return from [place] in September 2023. We will continue to follow. Secondary hypercoagulable state (CMS/HCC V24) Essential hypertension 01/03/2022 Overview (05/30/2024): Last Assessment & Plan: The patient's blood pressure is well-controlled on current medical therapies; blood pressure was slightly elevated on initial check but was improved on recheck. The patient reports that he does not check his blood pressure at home however that in the past his blood pressures at medical visits have always been slightly elevated in comparison to home blood pressures. His metabolic panel was within normal limits when last checked in October 2022 via the patient's PCP who monitors this yearly. Will not make any changes to current medical therapies. Hypercholesteremia 01/03/2022 Palpitations 01/03/2022 Paroxysmal atrial fibrillation (CMS/HCC V24, CMS /HCC V28) 01/03/2022 Overview (05/30/2024): Last Assessment & Plan: The patient reports he has been doing very well and denies any palpitations since he was started on flecainide in August 2022, at which time he was seen by electrophysiology while he was in [place]. 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 He remains very active on a daily basis and denies any symptoms concerning for underlying ischemia or heart failure and appears euvolemic on exam. ECG in office today shows normal sinus rhythm with very mild bradycardia at 56 bpm; he denies any symptoms related to bradycardia. He is tolerating both flecainide and metoprolol well without any adverse effects; we will continue metoprolol for rate control and flecainide for rhythm control without change. The patient remains on Eliquis for cardioembolic prophylaxis; current dosing is appropriate for his age, weight, and renal function. We discussed the risks and benefits of continuing Eliquis for cardioembolic; he denies any issues with bleeding or bruising and would like to continue this medication at this time. He is aware to seek emergent medical attention for any uncontrolled bleeding, signs or symptoms of GI bleeding (which were reviewed with him today), or for any head injury. Surgical History Surgery Date Site/Laterality Comments VASECTOMY PROCEDURE: OH VASECTOMY UNI/BI SPX W/POSTOP SEMEN EXAMS OTHER SURGICAL HISTORY Left PROCEDURE: HISTORY OTHER; COMMENT: Herniorraphy OTHER SURGICAL HISTORY PROCEDURE: [place] ANES XTRPRTL LWR ABD W/URINARY TRACT RAD PRSTECT KNEE ARTHROSCOPY 03/2018 PROCEDURE: OH ARTHROSCOPY AID TX SPINE&/FX KNEE W/O FIXJ Medical History Medical History Date Comments BPH (benign prostatic hyperplasia) 01/03/2022 DX:BPH (benign prostatic hyperplasia) Prostate cancer (CMS/HCC V24 , CMS/HCC V28) DX:Prostate cancer (HCC) Tubular adenoma DX:Tubular adeno ma Social History Tobacco Use Types Packs/Day Years Used Date Smoking Tobacco: Never Smokeless Tobacco: Never Alcohol Use Standard Drinks/Week Comments Yes 0 (1 standard drink = 0.6 oz pur e alcohol) Sex and Gender Information Value Date Recorded Sex Assigned at Not on file Legal Sex Male 12:30 AM EST Gender Identity Not on file Sexual Orientation Not on file Obstetrics History Last Filed Vital Signs Vital Sign Reading Time Taken Comments Blood Pressure 132/62 04/16/2023 9:38 AM EST Sit ting L Arm Pulse 56 04/16/2023 9:13 AM EST Temperature - - Respiratory Rate - - Oxygen Saturation - - Inhaled Oxygen Concentration - - Weight 78.5 kg (173 lb) 04/16/2023 9:13 AM EST Height 182.9 cm (6') 04/16/2023 9:13 AM EST Body Mass Index 23.46 04/16/2023 9:13 AM EST Plan of Treatment Upcoming Encounters Date Type Department Care Team (Late st Contact Info) Description 11/09/2024 9:50 AM EDT Office Visit [facility] [address] [phone] Sharath Martinez MD [address] [address] Health Maintenance Due Date Last Done Comments COVID-19 Vaccine (#1) 1950 DTaP,Tdap,and Td Vaccines (1 - Tdap) 1964 Pneumococcal Vaccine: 50+ Ye ars (1 of 1 - PCV) 10/24/1995 Zoster Vaccines (1 of 2) 10/24/1995 RSV Immunization Adult Patie nts (1 - 1-dose 75+ series) 2020 Cholesterol Screening (Lipid Panel) 04/13/2022 Depression Screening 04/13/2022 Falls Risk Assessment 04/13/2022 Hepatitis C Screening 04/13/2022 Hypertension/CHF/CAD Annual BMP Blood Test 04/13/2022 Medicare Annual Wellness Visit 04/13/2022 Social Influencers of Health Screening 04/13/2022 Influenza Vaccine (Season Ended) 2025 HIB Vaccines Aged Out No longer eligi ble based on patient's age to complete this topic HPV Vaccines Aged Out No longer eligi ble based on patient's age to complete this topic Hepatitis A Vaccines Aged Out No long er eligible based on patient's age to complete this topic Hepatitis B Vaccines Aged Out No long er eligible based on patient's age to complete this topic IPV Vaccines Aged Out No longer eligi ble based on patient's age to complete this topic MMR Vaccines Aged Out No longer eligi ble based on patient's age to complete this topic Meningococcal ACWY Vaccine Aged Out N o longer eligible based on patient's age to complete this topic Meningococcal B Vaccine Aged Out No l onger eligible based on patient's age to complete this topic RSV Immunization Patients Un patricia 20 months Aged Out No longer eligible b ased on patient's age to complete this topic Varicella Vaccines Aged Out No longer eligible based on patient's age to complete this topic Insurance MEDICARE [facility] Care Teams Cyber Security Instructor Relationship Specialty Start Date End Date Robert Vu DO [address] [place] [phone] PCP - General Internal Medicine 12/02/21
== END 2024-10-06 13:42 | disposition home or self-care (01) ==
LOC: HO.HMCSH 12:55
PROVIDERS: PCP Internal Medicine; Visit Provider Physician Assistant Medical
DX: Z76.89 Persons encountering health services in other specified circumstances (principal); I10 Essential (primary) hypertension; E78.5 Hyperlipidemia, unspecified; I48.91 Unspecified atrial fibrillation; C61 Malignant neoplasm of prostate; N40.0 Benign prostatic hyperplasia without lower urinary tract symptoms; Z78.9 Other specified health status; D64.9 Anemia, unspecified; Z00.00 Encounter for general adult medical examination without abnormal findings

== ENCOUNTER → 2024-10-06 12:55 | Outpatient (BNVA) | payer MEDICARE, OTHER, SELFPAY | PROVIDERS: PCP Internal Medicine; Visit Provider Physician Assistant Medical | DX: I10 Essential (primary) hypertension (principal); E78.5 Hyperlipidemia, unspecified; I48.91 Unspecified atrial fibrillation; C61 Malignant neoplasm of prostate; N40.0 Benign prostatic hyperplasia without lower urinary tract symptoms; D64.9 Anemia, unspecified; Z78.9 Other specified health status; Z76.89 Persons encountering health services in other specified circumstances | CPT/HCPCS: 96127; 99202 ==

== ENCOUNTER 2024-10-25 09:07 | Outpatient (REF) | payer MEDICARE, OTHER, SELFPAY ==
--- OUTSIDE RECORDS SUMMARY | 2024-10-25 09:41 | XMS_ITS | Clinical Summary ---
Author Organization [facility] Address [address] [place] [address] Care Team Providers Care Adjudication Specialist Name Role Phone Robert Vu DO Primary Care Provider [phone] Allergies No known active allergies Medications flecainide [...] delay it until he is back from [place] in September 2023. I have placed an order for this to be scheduled within that timeframe. We will continue statin as ordered and readdress as needed; his PCP checks cholesterol once per year and the patient reports that he has an appointment scheduled with him on his return from [place] in September 2023. We will continue to [...] seen by electrophysiology while he was in [place]. 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 He remains very [...] History Surgery Date Site/Laterality Comments VASECTOMY PROCEDURE: VA VASECTOMY UNI/BI SPX W/POSTOP SEMEN EXAMS OTHER SURGICAL HISTORY Left PROCEDURE: HISTORY OTHER; COMMENT: Herniorraphy OTHER SURGICAL HISTORY PROCEDURE: VA ANES XTRPRTL LWR ABD W/URINARY TRACT RAD PRSTECT KNEE ARTHROSCOPY 03/2018 PROCEDURE: VA ARTHROSCOPY AID TX SPINE&/FX KNEE W/O FIXJ [...] Description 11/09/2024 9:50 AM EDT Office Visit [facility] [address] [id number] Sharath Martinez MD [address] [address] Health Maintenance Due Date Last Done Comments COVID-19 Vaccine (#1) 1950 DTaP,Tdap,and Td Vaccines (1 - Tdap) 1964 Zoster Vaccines (1 of 2) 1964 Pneumococcal Vaccine: 50+ Ye ars (1 of 1 - PCV) 10/24/1995 RSV Immunization Adult Patie nts (1 [...] age to complete this topic Insurance [facility]ARE [facility] Care Teams Adjudication Specialist Relationship Specialty Start Date End Date Robert Vu DO [address] [place] [id number] PCP - General Internal Medicine 12/02/21
[2024-10-25 10:01] LABS: MANUAL DIFF FLAG NO
[2024-10-25 10:11] LABS: Basophils Absolute Auto 0.1 X10*3/uL (0.0-0.2); Basophils Percent Auto 1.2 % (0-2); Eosinophils Absolute Auto 0.2 X10*3/uL (0.0-0.4); Eosinophils Percent Auto 2.9 % (0-4); Hematocrit 41.2 % (42.0-52.0); Hemoglobin 14.1 g/dl (14.0-18.0); Imm Gran Abs Auto 0.02 X10*3/uL (0.00-0.03); Imm Gran Pct Auto 0.4 % (0.0-0.4); Lymphocytes Percent Auto 20.2 % (20-40); Mean Corpuscular HGB Conc 34.2 g/dl (31.0-36.0); Mean Corpuscular Hemoglobin 31.1 pg (27.0-33.0); Mean Corpuscular Volume 90.7 fL (80.0-98.0); Mean Platelet Volume 9.4 fL (9.4-12.4); Monocytes Absolute Auto 0.4 X10*3/uL (0.1-1.2); Monocytes Percent Auto 7.6 % (2-11); Neutrophils Absolute Auto 3.5 x10*3/uL (2.0-8.3); Neutrophils Percent Auto 67.7 % (45-73); Platelet Count 239 X10*3/uL (160-400); Red Blood Count 4.54 X10*6/uL (4.60-5.80); Red Cell Distribution Width 12.3 % (11.0-16.0); White Blood Count 5.2 X10*3/uL (4.8-10.8)
[2024-10-25 10:17] LABS: Estimated Average Glucose 100 mg/dL; Hemoglobin A1c % 5.1 % (<6.0); Total Hemoglobin (HGBA1C) 3622.5754 umol/L
[2024-10-25 10:38] LABS: Alanine Aminotransferase 25 U/L (0-40); Albumin Level 4.4 g/dL (3.5-5.0); Alkaline Phosphatase 60 U/L (39-117); Anion Gap 11 (12-20); Aspartate Amino Transferase 28 U/L (5-37); Bilirubin Direct 0.3 mg/dL (0.0-0.5); Bilirubin Total 0.7 mg/dL (0.0-1.0); Blood Urea Nitrogen 13 mg/dL (9-16); C Reactive Protein 0.11 mg/dL (< or = 0.50); Calcium 9.4 mg/dL (8.4-10.2); Carbon Dioxide 26 mmol/L (22-29); Chloride 106 mmol/L (96-108); Cholesterol 207 mg/dL (<200); Estimated Glomerular Filt Rate > 60; Glucose Fasting 106 mg/dL (60-99); HDL Cholesterol 71 mg/dL (>40); Iron 144 mcg/dL (45-160); LDL Cholesterol Calculated 119 mg/dL (<100); Magnesium 2.1 mg/dL (1.6-2.6); Percent Iron Saturation 64 % (15-50); Potassium 5.1 mmol/L (3.3-5.1); Sodium 138 mmol/L (135-145); Total Iron Binding Capacity 224 mcg/dL (228-428); Total Protein 6.5 g/dL (6.5-8.0); Triglycerides 88 mg/dL (<150); Unsaturated Iron Binding 80 ug/dL
[2024-10-25 10:41] LABS: Ferritin 604 ng/mL (20-250); TSH reflex Free T4 0.94 uIU/mL (0.32-4.0); Vitamin D 25-OH Total 81.7 ng/mL (>30)
[2024-10-25 10:48] LABS: PSA,Total (Free>4and<10) < 0.10 ng/mL (0.00-4.00)
[2024-10-25 10:59] LABS: Folate 14.4 ng/mL (> or = 4.0); Vitamin B12 576 pg/mL (200-900)
== END 2024-10-25 09:08 | disposition home or self-care (01) ==
LOC: HO.HMGCLDS 09:07
PROVIDERS: Visit Provider Physician Assistant Medical
DX: Z00.00 Encounter for general adult medical examination without abnormal findings (principal); D64.9 Anemia, unspecified; Z12.5 Encounter for screening for malignant neoplasm of prostate; Z13.1 Encounter for screening for diabetes mellitus; Z13.220 Encounter for screening for lipoid disorders
CPT/HCPCS: 36415; 80053; 80061; 80076; 82248; 82306; 82607; 82728; 82746; 83036; 83540; 83735; 84153; 84443; 85025; 86140

== ENCOUNTER 2025-02-23 14:32 | Outpatient (AMB) | payer MEDICARE, OTHER, SELFPAY ==
[2025-02-23 14:36] VITALS: BP 119/60; PULSE 102; TEMP 36.4; O2SAT 95
--- NOTE | 2025-02-23 14:36 | A.OFFPC_ITS ---
Vital Signs 02/23/25 14:36 Height 6 ft BP 119/60 Blood Pressure Location Rt brachial Position Sitting Pulse 102 H Pulse Source Pulse Oximeter Temp 97.5 F Temp Source Temporal Artery Scan Pulse Oximetry (%) 95 Oxygen Delivery Method Room Air Intake Visit Reasons: Pain post hip replacement Intake Note: Patient tripped and fell on left side while on vacation in [facility], Hip surgery was done 02/18/25 in [facility] Supervisor Knitting Required: No Accompanied by: Spouse Allergies No Known Allergies Allergy (Verified 02/23/25 17:02) Medication List - Last Reconciled 02/23/25 by Cary Chris PA-C acetaminophen (Tylenol Extra Strength) 1,000 mg (2 x 500 mg) PO BID PRN enoxaparin (Lovenox) 40 mg (0.4 mL) subcut DAILY flecainide 50 mg PO BID 90 days lisinopril 10 mg PO DAILY metoprolol succinate ER 50 mg PO DAILY simvastatin 40 mg PO BEDTIME trazodone 50 mg PO BEDTIME PRN Tobacco use date assessed: 02/23/25 Fall risk assessment: 1 Fall in past year Last assessed Fall Risk: 02/23/25 Dental Screening Dental Screen Date: 02/23/25 Did you have a dental visit in the last 12 months?: Yes Did you have a dental problem in the last 6 months where you did not have access to dental care?: No Was dental information given to patient?: Patient has dentist HPI Pain post hip replacement HPI Details The patient is a 79-year-old male presenting with follow-up care after a left total hip replacement surgery. The patient experienced a fall in [facility], resulting in a hip fracture on February 16. He underwent a total hip replacement on February 18 due to the fracture. Post-surgery, he was prescribed Tylenol for pain management and Lovenox as an anticoagulant. The patient has a history of anemia, which has been monitored with regular blood tests. Recent lab results indicated low sodium levels and an elevated C-reactive protein, likely due to the recent surgery. Social History - Exercise: Previously physically active , as noted by the decision for a total hip replacement instead of a partial one. [facility] Medical History (Updated 02/23/25 @ 17:06 by Cary Chris PA-C) Elevated C-reactive protein (CRP) Hyponatremia High total iron binding capacity Elevated ferritin Anemia Full code status (~10/06/24) BPH (benign prostatic hyperplasia) Establishing care with new doctor, encounter for Prostate cancer Afib HLD (hyperlipidemia) HTN (hypertension) Surgical History History of total left hip replacement H/O inguinal hernia repair H/O colonoscopy (~10/23/23) History of radical prostatectomy (~2005) Family History Father No problems noted. Mother No problems noted. Social History Household Members: Spouse Housing: Condominium Are you a primary career development facilitator to a significant other at home: No Do you presently have visiting nurse or other home services: No Alcohol intake: current Alcohol intake frequency: holidays/special occasions only Patient Tobacco Use Status: Never used Tobacco service: Yes Current occupational status: retired Cognitive needs: No Hearing needs: Yes (b/l hearing aids) Vision needs: Yes (rx glasses) Questionnaire PHQ-9 Over the last 2 weeks, how often have you been bothered by any of the following problems? 1. Little interest or pleasure in doing things: not at all 2. Feeling down, depressed, or hopeless: not at all 3. Trouble falling or staying asleep, or sleeping too much: not at all 4. Feeling tired or having little energy: not at all 5. Poor appetite or overeating: not at all 6. Feeling bad about yourself - or that you are a failure or have let yourself or your family down: not at all 7. Trouble concentrating on things, such as reading the newspaper or watching television: not at all 8. Moving or speaking so slowly that other people could have noticed. Or the opposite - being so fidgety or restless that you have been moving around a lot more than usual: not at all 9. Thoughts that you would be better off or of hurting yourself in some way: not at all Total score: 0 Depression Screening Interpretation: Negative Depression Screening Done: Yes 70637 - PHQ-9 Billing: Yes Source: Developed by Drs. Robert Chen, Armand Salmon and colleagues, with an educational beto from [employer]. Thrive Questionnaire Date Thrive assessed: 02/23/25 I am a: Patient What is your living situation today?: I have a steady place to live Within the past 12 months, did the food you bought not last and you didn't have the money to get more?: Never true Within the past 12 months, did you worry whether your food would run out before you got money to buy more?: Never true Do you have trouble paying for medicines?: No Do you have trouble getting transportation to medical appointments?: No Do you have trouble paying your heating and electricity bill?: No Do you have trouble taking care of your child, family member or friend?: No Do you have trouble with day-to-day activities such as bathing, preparing meals, shopping, managing finances, etc.?: No Are you currently unemployed and looking for a job?: No Are you interested in more education?: No Please select the resources that you would like help with: None THRIVE Score: 0 AUDIT C Alcohol Use Questionnaire (AUDIT-C) 1. How often do you have a drink containing alcohol?: Monthly or less 2. How many drinks containing alcohol do you have on a typical day when you are drinking?: 1 or 2 3. How often do you have six or more drinks on one occasion?: Never Total Score: 1 Score Reviewed/Action Taken: No TONY-7 AMB Questionnaire TONY-7 Date TONY - 7 assessed: 02/23/25 Feeling nervous, anxious, or on edge: 0 = Not at all Not being able to stop or control worryin = Not at all Worrying too much about different things: 0 = Not at all Trouble relaxin = Not at all Being so restless that it is hard to sit still: 0 = Not at all Becoming easily annoyed or irritable: 0 = Not at all Feeling afraid as if something awful might happen: 0 = Not at all Total TONY-7 score (0-4 normal; 5-9 mild; 10-14 moderate; 15-21 severe): 0 Source: Developed by Lilibeth May Kurt Kroenke and colleagues, with an educational beto from [employer]. TONY-7 Assessment Billing TONY-7 Assessment Tool: TONY-7 Assessment 13838 Review of Systems Const Details: - Musculoskeletal: Reports no current pain due to effective pain management with Tylenol. - General: Denies any current pain or discomfort. All systems reviewed & are unremarkable except as noted in HPI and below Physical exam (Primary Care) Vital Signs: Last Vital Signs Temp 97.5 F 02/23/25 14:36 Pulse 102 H 02/23/25 14:36 BP 119/60 02/23/25 14:36 Pulse Ox 95 02/23/25 14:36 Oxygen Delivery Method Room Air 02/23/25 14:36 Care Plan Goal for BP management: <140/90 at Goal Tobacco/Smoking Status: Tobacco use Status Tobacco use date assessed 02/23/25 02/23/25 14:37 Patient Tobacco Use Status Never used Tobacco 02/23/25 14:37 PHQ-9: PHQ-9 Score PHQ-9: Total score 0 02/23/25 14:37 Depression Screening Interpretation: Negative Thrive Assessment: Date of Thrive Assessment Date Thrive assessed 02/23/25 02/23/25 14:37 Const Other: Appearance: Alert. Oriented X3. No acute distress. Head: Normal external exam. Normocephalic. Atraumatic. Eyes: Pupils are equal, round, and reactive to light. Extraocular movements intact. Conjunctiva and sclera normal. Eyelids normal. Throat: Pharynx normal. Uvula midline. Moist mucous membranes. Neck: Normal inspection. Neck supple. Full range of motion. Cardiovascular: Normal heart rate and rhythm. Heart sound normal. No murmurs noted. Pulses normal throughout. Respiratory: No respiratory distress. Painless inspiration. Breath sounds normal. No wheezes/rales/rhonchi noted. Chest nontender. No accessory muscle usage noted or decreased air movement noted. Back: Full range of motion noted. Skin: Skin warm and dry. Normal skin color. Normal skin turgor. No rashes/lesions/lacerations noted. Well-healing wound with scab overlying to left arm/elbow, no bleeding. Extremities: No lower extremity edema. Extremities exhibit normal range of motion. Left hip replaced, incision healing well, no swelling down the leg. Neuro: Oriented X 3. No motor deficit. No sensory deficit. Reflexes normal. Office Procedures Flu Questionnaire Does the patient have a severe egg allergy?: No Does the patient have severe life threatening allergies?: No Does the patient have a fever or illness today?: No Has the patient ever had Guillain-Hull Syndrome?: No Has the patient ever had any past reaction to a flu shot?: No Immunizations Fluarix [id number] (PF) 45 mcg (15 mcg x 3)/0.5 mL IM syringe Performing Provider: Cary Chris PA-C [facility] [place] [facility] Documented (not given) by: Nisa Abbasi CMA on 02/23/25 14:49 Reason Not Given: Received Previously Results Reviewed Results Reviewed: - Labs: White blood cell count 7.9 (normal), Hemoglobin 11.7, Hematocrit 35.3, Platelet count normal, C-reactive protein 27.3 (elevated), Glucose 106, BUN 33, Creatinine 0.58, Sodium low, Potassium 4.0. Coding Level of Care Code Est Pt Level 4 (73205) Complex EM visit Add On G2211 Diagnoses History of total left hip replacement Z96.642 Anemia D64.9 Hyponatremia E87.1 Elevated C-reactive protein (CRP) R79.82 Additional Codes TONY-7 Assessment Billing - TONY-7 Assessment Tool: TONY-7 Assessment 17035 ([id number]) PHQ-9 - 66492 - PHQ-9 Billing: Yes ([id number]) Assessment & Plan Assessment & Plan (1) History of total left hip replacement: Comment: 02/18/25 in [facility] Code(s): Z96.642 - Presence of left artificial hip joint Category: Surgical Plan: The patient will continue with pain management using Tylenol, and follow-up with orthopedic specialists is planned to monitor recovery and rehabilitation progress. Physical therapy has been recommended to aid in strengthening and mobility post-surgery. (2) Anemia: Code(s): D64.9 - Anemia, unspecified Category: Medical Plan: The patient's anemia will continue to be monitored with regular blood tests to assess hemoglobin levels and overall blood health. (3) Hyponatremia: Code(s): E87.1 - Hypo-osmolality and hyponatremia Category: Medical Plan: The patient is advised to increase dietary sodium intake to address the low sodium levels observed in recent lab results. (4) Elevated C-reactive protein (CRP): Code(s): R79.82 - Elevated C-reactive protein (CRP) Category: Medical Plan: The elevated C-reactive protein is likely due to recent surgery and will be monitored to ensure it returns to normal levels as recovery progresses. Plan Plan Patient was informed and verbally consented to the use of an ambient scribe for clinic note documentation during this visit. 1. Hip Fracture The patient will continue with pain management using Tylenol, and follow-up with orthopedic specialists is planned to monitor recovery and rehabilitation progress. Physical therapy has been recommended to aid in strengthening and mobility post-surgery. 2. Anemia The patient's anemia will continue to be monitored with regular blood tests to assess hemoglobin levels and overall blood health. 3. Low Sodium Levels The patient is advised to increase dietary sodium intake to address the low sodium levels observed in recent lab results. 4. Elevated C-Reactive Protein The elevated C-reactive protein is likely due to recent surgery and will be monitored to ensure it returns to normal levels as recovery progresses. During the visit, I discussed the patient's current condition following his total hip replacement surgery. We reviewed his medication regimen, emphasizing the importance of continuing Lovenox for anticoagulation and Tylenol for pain management. I advised on the need for follow-up with orthopedic specialists and physical therapy to aid in recovery. We also discussed the importance of monitoring his anemia and addressing his low sodium levels through dietary adjustments. Orders: Orders Influenza [id number] Immunization Today Z23 - Encounter for immunization PT Evaluation and Treatment Today Z96.642 - Presence of left artificial hip joint Complete Blood Count no Diff Today Z00.00 - Encounter for general adult medical examination without abnormal findings Comprehensive Met. Panel Today Z00.00 - Encounter for general adult medical examination without abnormal findings Magnesium Today Z00.00 - Encounter for general adult medical examination without abnormal findings Referrals Orthopedics Referral Z96.642 - Presence of left artificial hip joint Medications: New enoxaparin (Lovenox) 40 mg (0.4 mL) subcut DAILY 4 mL 3RF trazodone 50 mg PO BEDTIME PRN 30 tabs 3RF sleep acetaminophen (Tylenol Extra Strength) 1,000 mg (2 x 500 mg) PO BID PRN 90 tabs 0RF pain Patient Instructions: - Continue taking Tylenol as prescribed for pain management. - Follow up with orthopedic specialists and attend physical therapy sessions as scheduled. - Increase dietary sodium intake to address low sodium levels. - Monitor for any signs of infection at the incision site and report any concerns. - Schedule and complete blood work to monitor anemia and overall health.
--- OUTSIDE RECORDS SUMMARY | 2025-02-23 18:24 | XMS_ITS | Clinical Summary ---
Author Organization [address] [place] [address] [place] [phone] Phone Care Team Providers Care Digital Marketing Consultant Name Role Phone Mirella, Robert DONOVAN Primary Care Provider [phone] Allergies No known active allergies Medications flecainide [...] Active Problems Problem Noted Date Diagnosed Date Aneurysm of ascending aorta without rupture ([facility] V24) 11/09/2024 Bradycardia 04/16/2023 Bruit of right carotid artery [...] delay it until he is back from [place] in September 2023. I have placed an order for this to be scheduled within that timeframe. We will continue statin as ordered and readdress as needed; his PCP checks cholesterol once per year and the patient reports that he has an appointment scheduled with him on his return from [place] in September 2023. We will continue to follow. Secondary hypercoagulable state ([facility] V24) Essential hypertension 01/03/2022 Overview (05/30/2024): Last [...] Hypercholesteremia 01/03/2022 Palpitations 01/03/2022 Paroxysmal atrial fibrillation ([facility] V24, [facility] V28) 01/03/2022 Overview (05/30/2024): Last Assessment & Plan: The patient reports he has been doing very well and denies any palpitations since he was started on flecainide in August 2022, at which time he was seen by electrophysiology while he was in [place]. 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 He remains very [...] him today), or for any head injury. Encounters Date Type Department Care Team Description 01/06/2025 3:30 PM EDT Ancillary Procedure [facility] [address] [place] [address] Paroxysmal atrial fibrillation (CMS/HCC V24, CMS/HCC V28); Bradycardia; Aneurysm of ascending aorta without rupture (CMS/HCC V24) from Last 3 Months Surgical History Surgery Date Site/Laterality Comments VASECTOMY PROCEDURE: [place] VASECTOMY UNI/BI SPX W/POSTOP SEMEN EXAMS OTHER SURGICAL HISTORY Left PROCEDURE: HISTORY OTHER; COMMENT: Herniorraphy OTHER SURGICAL HISTORY PROCEDURE: [place] ANES XTRPRTL LWR ABD W/URINARY TRACT RAD PRSTECT KNEE ARTHROSCOPY 03/2018 PROCEDURE: [place] ARTHROSCOPY AID TX SPINE&/FX KNEE W/O FIXJ [...] Sign Reading Time Taken Comments Blood Pressure 140/68 11/09/2024 9:43 AM EDT Pulse 54 11/09/2024 9:43 AM EDT Temperature - - Respiratory Rate - - Oxygen Saturation 98% 11/09/2024 9:43 AM EDT Inhaled Oxygen Concentration - - Weight 79.4 kg (175 lb) 01/06/2025 4:12 PM EDT Height 182.9 cm (6') 01/06/2025 4:12 PM EDT Body Mass Index 23.73 01/06/2025 4:12 PM EDT Plan of Treatment Health Maintenance Due Date Last Done Comments Zoster Vaccines (1 of 2) 1964 Cholesterol Screening (Lipid Panel) 04/13/2022 Falls Risk Assessment 04/13/2022 Hepatitis C Screening 04/13/2022 Hypertension/CHF/CAD Annual BMP Blood Test 04/13/2022 Medicare Annual Wellness Visit 04/13/2022 Social Influencers of Health Screening 04/13/2022 Depression Screening 05/04/2024 COVID-19 Vaccine ( season) 2025 08/05/2021, 02/23/2021, 06/15/2020, Additional history exists Influenza Vaccine (#1) 2025 , 02/05/2022, 01/07/2022, Additional history exists DTaP,Tdap,and Td Vaccines (2 - Td or Tdap) 03/24/2032 03/24/2022 Pneumococcal Vaccine: 50+ Years Completed 11/07/2015, 03/19/2011 RSV Immunization Adult Patients Completed 03/09/2023 HIB Vaccines Aged Out No longer eligi [...] to complete this topic RSV Immunization Patients Under 20 months Aged Out No longer eligible based on patient's age to complete this topic Varicella Vaccines Aged Out No longer eligible based on patient's age to complete this topic Procedures Procedure Name Priority Date/Time Associated Diagnosis Comments TRANSTHORACIC ECHOCARDIOGRAM (TTE) COMPLETE Routine 01/06/2025 4:12 PM EDT Paroxysmal atrial fibrillation (CMS/HCC V24, CMS/HCC V28) Bradycardia Aneurysm of ascending aorta without rupture (CMS/HCC V24) from Last 3 Months Results * (ABNORMAL) TRANSTHORACIC ECHOCARDIOGRAM (TTE) COMPLETE (01/06/2025 4:12 PM EDT) Left Atrium Minor [place] 6.5 cm CV PACS Left Atrium Major [place] 5.7 cm CV PACS LA Area Sys (A2C) 29 cm2 CV PACS LA Area Sys (A4C) 19 cm2 CV PACS LA Volume (BP) 74 mL CV PACS RA Area 19.9 cm2 CV PACS RA 2D Volume 57 mL CV PACS AV Regurgitation PHT 608 ms CV PACS AR Max Velocity 4.2 m/s CV PACS AV Regurgitant Volume 70 mmHg CV PACS AV Peak Andreas 1.2 m/s CV PACS AV Peak Gradient 6 mmHg CV PACS AV Mean Gradient 3 mmHg CV PACS Ao VTI 27.1 cm CV PACS AV Area Continuity Equation 3.4 cm2 CV PACS AV Area Peak Velocity 3.0 cm2 CV PACS Aortic Sinus Valsalva 4.5 cm CV PACS Ascending Aorta 4.0 cm CV PACS IVC Proximal 1.2 cm CV PACS IVSD 1.1(A) 0.6 - 1.0 cm CV PACS LVIDD 3.7(A) 4.2 - 5.8 cm CV PACS LVIDS 2.4(A) 2.5 - 4.0 cm CV PACS LVOT Diameter 2.2 cm CV PACS LVOT Mean Andreas 0.7 m/s CV PACS LVOT Mean Grad 2 mmHg CV PACS LVOT Peak VTI 24.6 cm CV PACS LVOT Peak Andreas 1.0 m/s CV PACS LVOT Peak Gradient 4 mmHg CV PACS LVPWD 1.0 0.6 - 1.0 cm CV PACS MV E' Tissue Velocity Lateral 5 cm/s CV PACS MV E' Tissue Velocity Septal 3 cm/s CV PACS LVOT Area 3.8 cm2 CV PACS LVOT Stroke Volume 93 mL CV PACS MV Deceleration Coleman 1.8 m/s2 CV PACS E Wave Deceleration Time 318(A) 119 - 242 ms CV PACS MV PHT 94 ms CV PACS MV Peak A Andreas 0.60 m/s CV PACS MV Peak E Andreas 0.58 m/s CV PACS MV Area PHT 2.3 cm2 CV PACS RV Diastolic Basal Dimension 4.3(A) 2.5 - 4.1 cm CV PACS RV S' 13 cm/s CV PACS TAPSE 26 mm CV PACS TR Peak Velocity 1.73 m/s CV PACS TR Peak Gradient 12 mmHg CV PACS E/E' Ratio Septal 19 CV PACS E/E' Ratio Averaged 15 CV PACS Relative Wall Thickness ratio 0.54 CV PACS LVOT:AV VTI Index 0.91 CV PACS FS 35 % CV PACS LV Mass 2D 121 g CV PACS LVOT flow 266 mL/s CV PACS AV Velocity Ratio 0.83 CV PACS E/A Ratio 1.0 CV PACS E/E' Ratio Lateral 12 CV PACS BSA 2.01 m2 CV PACS LA Volume Index (BP) 37 mL/m2 CV PACS LVIDD Index 1.84 cm/m2 CV PACS LVIDS Index 1.19 cm/m2 CV PACS LV Mass Index 2D 60 50 - 102 g/m2 CV PACS LVOT Stroke Index 46 mL/m2 CV PACS RA 2D Volume Index 28 18 - 32 mL/m2 CV PACS MARTIN Index (VTI) 1.72 cm2/m2 CV PACS MARTIN Index (Pk Andreas) 1.49 cm2/m2 CV PACS Ascending Aorta Index 1.99 cm/m2 CV PACS Right Ventricular Peak Systolic Pressure 15 mmHg CV PACS Est. RA Pressure 3 mmHg CV PACS Anatomical Region Laterality Modality Ultrasound Narrative 01/16/2025 7:52 AM EDT Left ventricle cavity size is normal. Left ventricular systolic function is in the normal range with an ejection fraction of 55-60%. No wall motion abnormality. Wall thickness is normal. Moderate diastolic dysfunction. Right ventricular systolic function is normal. Function is normal. Aortic valve is trileaflet. 1-2+ AI. Pressure half-time 608 Dilated ascending aorta at 4 cm. Aorta at the sinuses of Valsalva 4.5 cm. No other significant valvular abnormalities. No prior echo for comparison. Left Ventricle Left ventricle cavity size is normal. Wall thickness is normal. Systolic function is normal with an ejection fraction of 55-60%. There are no regional LV wall motion abnormalities. There is Grade II (moderate) diastolic dysfunction. Right Ventricle Enlarged right ventricular size. Systolic function is normal. Left Atrium Left atrium cavity is mildly dilated. Right Atrium Right atrium cavity is normal. IVC/SVC RA pressures is estimated to be 3 mmHg (IVC diameter <21 mm and decreases >50% during inspiration). Mitral Valve Mitral valve opens normally. There is annular calcification. There is trace regurgitation. There is no evidence of mitral valve stenosis. Tricuspid Valve Tricuspid valve structure is normal. There is trace regurgitation. There is no evidence of tricuspid valve stenosis. Aortic Valve The aortic valve is trileaflet. There is mild to moderate regurgitation. There is no evidence of aortic valve stenosis. Pulmonic Valve The pulmonic valve was not well visualized. There is no regurgitation or stenosis. Ascending Aorta Aortic sinus 4.5 cm. Ascending aorta 4.0 cm. Transverse aorta not well visualized. Pericardium There is an anterior fat pad. There is no pericardial effusion. Study Details Overall the study quality was adequate. us Sharath Martinez MD CV ECHO PROCEDURES Final Result from Last [address] [id number] MEDICARE [facility] Care Teams Digital Marketing Consultant Relationship Specialty Start Date End Date Robert Vu DO [address] [place] [phone] PCP - General Internal Medicine 12/02/21
== END 2025-02-23 15:22 | disposition home or self-care (01) ==
PROVIDERS: PCP Physician Assistant Medical; Visit Provider Physician Assistant Medical
DX: Z96.642 Presence of left artificial hip joint (principal); D64.9 Anemia, unspecified; E87.1 Hypo-osmolality and hyponatremia; R79.82 Elevated C-reactive protein (CRP); Z23 Encounter for immunization

== ENCOUNTER → 2025-02-23 14:32 | Outpatient (BNVA) | payer MEDICARE, OTHER, SELFPAY | PROVIDERS: PCP Internal Medicine; Visit Provider Physician Assistant Medical | DX: E87.1 Hypo-osmolality and hyponatremia (principal); D64.9 Anemia, unspecified; R79.82 Elevated C-reactive protein (CRP); Z28.89 Immunization not carried out for other reason; Z96.642 Presence of left artificial hip joint | CPT/HCPCS: 90471; 96127; 99212 ==

== ENCOUNTER 2025-02-28 10:27 | Outpatient (REF) | payer MEDICARE, OTHER, SELFPAY ==
--- OUTSIDE RECORDS SUMMARY | 2025-02-28 12:57 | XMS_ITS | Clinical Summary ---
Author Organization [address] [place] [address] [place] [phone] Phone Care Team Providers Care Jigsawyer Name Role Phone Mirella, Robert DONOVAN Primary Care Provider [phone] Allergies No known active allergies Medications flecainide [...] Date Aneurysm of ascending aorta without rupture ([facility] V24) 11/09/2024 Bradycardia 04/16/2023 Bruit of right [...] delay it until he is back from [place] in September 2023. I have placed an order for this to be scheduled within that timeframe. We will continue statin as ordered and readdress as needed; his PCP checks cholesterol once per year and the patient reports that he has an appointment scheduled with him on his return from [place] in September 2023. We will continue to follow. Secondary hypercoagulable state ([facility] V24) Essential hypertension 01/03/2022 Overview (05/30/2024): Last [...] Hypercholesteremia 01/03/2022 Palpitations 01/03/2022 Paroxysmal atrial fibrillation ([facility] V24, [facility] V28) 01/03/2022 Overview (05/30/2024): Last Assessment & Plan: The patient reports he has been doing very well and denies any palpitations since he was started on flecainide in August 2022, at which time he was seen by electrophysiology while he was in [place]. He continues to follow with a shot peening operator in [place] 1-2 times per year. He remains very [...] Description 01/06/2025 3:30 PM EDT Ancillary Procedure [facility] - [address] [place] [address] Paroxysmal atrial fibrillation (CMS/HCC V24, CMS/HCC V28); Bradycardia; Aneurysm of ascending aorta without rupture (CMS/HCC V24) from Last 3 Months Surgical History Surgery Date Site/Laterality Comments VASECTOMY PROCEDURE: [place] VASECTOMY UNI/BI SPX W/POSTOP SEMEN EXAMS OTHER SURGICAL HISTORY Left PROCEDURE: HISTORY OTHER; COMMENT: Herniorraphy OTHER SURGICAL HISTORY PROCEDURE: [place] ANES XTRPRTL LWR ABD W/URINARY TRACT RAD PRSTECT KNEE ARTHROSCOPY 03/2018 PROCEDURE: [place] ARTHROSCOPY AID TX SPINE&/FX KNEE W/O FIXJ [...] (01/06/2025 4:12 PM EDT) Left Atrium Minor [place] 6.5 cm CV PACS Left Atrium Major [place] 5.7 cm CV PACS LA Area Sys [...] Volume 93 mL CV PACS MV Deceleration [place] 1.8 m/s2 CV PACS E Wave Deceleration [...] Last [address] [id number] MEDICARE [facility] Care Teams Jigsawyer Relationship Specialty Start Date End Date Robert Vu DO [address] [place] [phone] PCP - General Internal Medicine 12/02/21
[2025-02-28 13:39] LABS: Hematocrit 34.6 % (42.0-52.0); Hemoglobin 11.4 g/dl (14.0-18.0); Mean Corpuscular HGB Conc 32.9 g/dl (31.0-36.0); Mean Corpuscular Hemoglobin 30.6 pg (27.0-33.0); Mean Corpuscular Volume 92.8 fL (80.0-98.0); NRBC Abs Auto 0.000 X10*3/uL (0.0-0.012); NRBC Pct Auto 0.0 /100WBC (0.0-0.2); Platelet Count 378 X10*3/uL (160-400); Red Blood Count 3.73 X10*6/uL (4.60-5.80); White Blood Count 7.4 X10*3/uL (4.8-10.8)
[2025-02-28 14:00] LABS: Alanine Aminotransferase 43 U/L (0-40); Albumin Level 4.0 g/dL (3.5-5.0); Alkaline Phosphatase 75 U/L (39-117); Anion Gap 11 (12-20); Aspartate Amino Transferase 36 U/L (5-37); Blood Urea Nitrogen 16 mg/dL (9-16); Calcium 9.0 mg/dL (8.4-10.2); Carbon Dioxide 28 mmol/L (22-29); Chloride 102 mmol/L (96-108); Estimated Glomerular Filt Rate > 60; Magnesium 2.0 mg/dL (1.6-2.6); Potassium 4.4 mmol/L (3.3-5.1); Sodium 137 mmol/L (135-145); Total Protein 6.4 g/dL (6.5-8.0)
== END 2025-02-28 10:28 | disposition home or self-care (01) ==
LOC: HO.HMGCLDS 10:27
PROVIDERS: PCP Physician Assistant Medical; Visit Provider Physician Assistant Medical
DX: Z00.00 Encounter for general adult medical examination without abnormal findings (principal)
CPT/HCPCS: 36415; 80053; 83735; 85027

== ENCOUNTER 2025-03-02 11:25 | Outpatient (AMB) | payer MEDICARE, OTHER, SELFPAY ==
--- NOTE | 2025-03-02 11:34 | MHC.PC.OV ---
Vital Signs 03/02/25 11:35 Height 5 ft 11.26 in Weight 173 lb BMI 24.0 BP 149/68 H Blood Pressure Location Rt brachial Position Sitting Respiration 16 Pulse 68 Pulse Source Pulse Oximeter Temp 98.3 F Temp Source Temporal Artery Scan Pulse Oximetry (%) 98 Oxygen Delivery Method Room Air Intake Visit Reasons: 1 week follow up Acquisition Consultant Required: No Accompanied by: Spouse Allergies No Known Allergies Allergy (Verified 03/02/25 11:52) Medication List - Last Reconciled 03/02/25 by Cary Chris PA-C acetaminophen (Tylenol Extra Strength) 1,000 mg (2 x 500 mg) PO BID PRN enoxaparin (Lovenox) 40 mg (0.4 mL) subcut DAILY flecainide 50 mg PO BID 90 days lisinopril 10 mg PO DAILY metoprolol succinate ER 50 mg PO DAILY simvastatin 40 mg PO BEDTIME Tobacco use date assessed: 02/23/25 Dental Screening Dental Screen Date: 02/23/25 HPI 1 week follow up HPI Details The patient is a 79 year old male presenting with a one-week follow-up after a recent hip replacement. The hip replacement surgery was performed in [facility], and upon return, he has faced difficulties obtaining follow-up care with an client solutions specialist. [facility] and [facility] both requested surgical notes and identification of the hip replacement device, which he has been unable to obtain from [facility]. He has an appointment scheduled with [facility] for March 29 but desires an earlier evaluation. The patient also needs to start physical therapy but was informed by [facility] that he must be seen by a doctor within their group before a PT referral can be made. He received no post-operative instructions from [facility] regarding ambulation or when to discontinue using a walker, although his records noted Regarding medications, the patient is currently on Lovenox injections for post-operative anticoagulation. He has a history of taking Eliquis, which he previously received in 90-day supplies through his solar installer technician, Dr. Vu, and [facility]. A [place] solar installer technician recently prescribed a 30-day supply of Eliquis, which was dispensed by [facility] on the same day as his Lovenox injections, though he has not taken the Eliquis. Social History - Functional Status: The patient is currently using a walker for ambulation and is uncertain when to discontinue its use. - Level of Activity: The patient is not currently participating in physical therapy, leading to concerns about deconditioning. [facility] Medical History (Updated 03/02/25 @ 15:06 by Cary Chris PA-C) Encounter for postoperative wound care On anticoagulant therapy Elevated C-reactive protein (CRP) Hyponatremia High total iron binding capacity Elevated ferritin Anemia Full code status (~10/06/24) BPH (benign prostatic hyperplasia) Establishing care with new doctor, encounter for Prostate cancer Afib HLD (hyperlipidemia) HTN (hypertension) Surgical History History of total left hip replacement H/O inguinal hernia repair H/O colonoscopy (~10/23/23) History of radical prostatectomy (~2005) Family History Father No problems noted. Mother No problems noted. Social History Household Members: Spouse Housing: [facility] Are you a primary infant caregiver to a significant other at home: No Do you presently have visiting nurse or other home services: No Alcohol intake: current Alcohol intake frequency: holidays/special occasions only Patient Tobacco Use Status: Never used Tobacco service: Yes Current occupational status: retired Cognitive needs: No Hearing needs: Yes (b/l hearing aids) Vision needs: Yes (rx glasses) Questionnaire PHQ-9 Over the last 2 weeks, how often have you been bothered by any of the following problems? 1. Little interest or pleasure in doing things: not at all 2. Feeling down, depressed, or hopeless: not at all 3. Trouble falling or staying asleep, or sleeping too much: not at all 4. Feeling tired or having little energy: not at all 5. Poor appetite or overeating: not at all 6. Feeling bad about yourself - or that you are a failure or have let yourself or your family down: not at all 7. Trouble concentrating on things, such as reading the newspaper or watching television: not at all 8. Moving or speaking so slowly that other people could have noticed. Or the opposite - being so fidgety or restless that you have been moving around a lot more than usual: not at all 9. Thoughts that you would be better off or of hurting yourself in some way: not at all Total score: 0 Depression Screening Interpretation: Negative Depression Screening Done: Yes 87075 - PHQ-9 Billing: Yes Source: Developed by Drs. Robert Chen, Lilibeth Pryor, Armand Westbrook and colleagues, with an educational beto from [employer]. Thrive Questionnaire Date Thrive assessed: 02/23/25 I am a: Patient What is your living situation today?: I have a steady place to live Within the past 12 months, did the food you bought not last and you didn't have the money to get more?: Never true Within the past 12 months, did you worry whether your food would run out before you got money to buy more?: Never true Do you have trouble paying for medicines?: No Do you have trouble getting transportation to medical appointments?: No Do you have trouble paying your heating and electricity bill?: No Do you have trouble taking care of your child, family member or friend?: No Do you have trouble with day-to-day activities such as bathing, preparing meals, shopping, managing finances, etc.?: No Are you currently unemployed and looking for a job?: No Are you interested in more education?: No Please select the resources that you would like help with: None THRIVE Score: 0 AUDIT C Alcohol Use Questionnaire (AUDIT-C) 1. How often do you have a drink containing alcohol?: Monthly or less 2. How many drinks containing alcohol do you have on a typical day when you are drinking?: 1 or 2 3. How often do you have six or more drinks on one occasion?: Never Total Score: 1 Score Reviewed/Action Taken: No TONY-7 AMB Questionnaire TONY-7 Date TONY - 7 assessed: 02/23/25 Feeling nervous, anxious, or on edge: 0 = Not at all Not being able to stop or control worryin = Not at all Worrying too much about different things: 0 = Not at all Trouble relaxin = Not at all Being so restless that it is hard to sit still: 0 = Not at all Becoming easily annoyed or irritable: 0 = Not at all Feeling afraid as if something awful might happen: 0 = Not at all Total TONY-7 score (0-4 normal; 5-9 mild; 10-14 moderate; 15-21 severe): 0 Source: Developed by Drs. Robert Chen, Lilibeth Pryor, Armand Westbrook and colleagues, with an educational beto from [employer]. TONY-7 Assessment Billing TONY-7 Assessment Tool: TONY-7 Assessment 86740 Review of Systems Const Details: Appearance: Alert. Oriented X3. No acute distress. Head: Normal external exam. Normocephalic. Atraumatic. Eyes: Pupils are equal, round, and reactive to light. Extraocular movements intact. Conjunctiva and sclera normal. Eyelids normal. Throat: Pharynx normal. Uvula midline. Moist mucous membranes. Neck: Normal inspection. Neck supple. Full range of motion. Cardiovascular: Normal heart rate and rhythm. Respiratory: No respiratory distress. Painless inspiration. Back: Full range of motion noted. Skin: Skin warm and dry. Normal skin color. Normal skin turgor. No rashes/lesions/lacerations noted. Extremities: No lower extremity edema. Extremities exhibit normal range of motion. Patient walking with walker. Well healing wound/surgical scar to left hip. Dressing was removed and replace. No signs of infection. There is no soft tissue swelling, erythema, fluctuance, induration or tenderness to palpation at this time.. All systems reviewed & are unremarkable except as noted in HPI and below Physical exam (Primary Care) Vital Signs: Last Vital Signs Temp 98.3 F 03/02/25 11:35 Pulse 68 03/02/25 11:35 Resp 16 03/02/25 11:35 BP 149/68 H 03/02/25 11:35 Pulse Ox 98 03/02/25 11:35 Oxygen Delivery Method Room Air 03/02/25 11:35 BMI result Body Mass Index 24.0 Tobacco/Smoking Status: Tobacco use Status Tobacco use date assessed 02/23/25 03/02/25 11:50 Patient Tobacco Use Status Never used Tobacco 03/02/25 11:50 PHQ-9: PHQ-9 Score PHQ-9: Total score 0 03/02/25 11:54 Depression Screening Interpretation: Negative Thrive Assessment: Date of Thrive Assessment Date Thrive assessed 02/23/25 03/02/25 11:50 Results Reviewed Results Reviewed: - Imaging: The patient reports having a pre-operative x-ray of the hip at home. Coding Level of Care Code Est Pt Level 4 (36130) Complex EM visit Add On G2211 Diagnoses History of total left hip replacement Z96.642 On anticoagulant therapy Z79.01 Encounter for postoperative wound care Z48.89 Additional Codes TONY-7 Assessment Billing - TONY-7 Assessment Tool: TONY-7 Assessment 89953 ([id number]) PHQ-9 - 33649 - PHQ-9 Billing: Yes ([id number]) Time Spent (min) 60 Assessment & Plan Assessment & Plan (1) History of total left hip replacement: Comment: 02/18/25 in [facility] Code(s): Z96.642 - Presence of left artificial hip joint Category: Surgical Plan: The patient is having difficulty establishing follow-up care with an client solutions specialist due to a lack of surgical records and implant details from his surgery in [facility]. An attempt will be made to contact colleagues at [facility] to secure an earlier appointment than the currently scheduled one on March 29. A new x-ray of the hip will be ordered to provide current imaging of the implant. A referral for physical therapy will be sent to [facility] in [place], as the patient was unable to initiate PT with [facility] without a prior physician assessment. (2) On anticoagulant therapy: Code(s): Z79.01 - longterm (current) use of anticoagulants Category: Medical Plan: The patient is currently on post-operative Lovenox injections and will need to transition back to his long-term anticoagulant, Eliquis, in approximately 30 days. The patient will call the office to request a 90-day prescription for Eliquis with three refills, to be sent to [facility], when he is ready to make the switch. It was noted that [facility] had recently dispensed both Eliquis and Lovenox on the same day, and the danger of concurrent use was discussed. (3) Encounter for postoperative wound care: Code(s): Z48.89 - Encounter for other specified surgical aftercare Category: Medical Plan: The surgical wound on the hip was examined and found to be well-healed and closed, with only a small area of potential minimal drainage. A referral to a wound care center is not deemed necessary at this time. The patient will continue the current wound care regimen of cleaning with normal saline and changing the dressing every other day for another week. Additional wound care supplies were provided. Plan Plan Patient was informed and verbally consented to the use of an ambient scribe for clinic note documentation during this visit. 1. Postoperative Care For Hip Arthroplasty The patient is having difficulty establishing follow-up care with an client solutions specialist due to a lack of surgical records and implant details from his surgery in [facility]. An attempt will be made to contact colleagues at [facility] to secure an earlier appointment than the currently scheduled one on March 29. A new x-ray of the hip will be ordered to provide current imaging of the implant. A referral for physical therapy will be sent to [facility] in [place], as the patient was unable to initiate PT with [facility] without a prior physician assessment. 2. Surgical Wound Care The surgical wound on the hip was examined and found to be well-healed and closed, with only a small area of potential minimal drainage. A referral to a wound care center is not deemed necessary at this time. The patient will continue the current wound care regimen of cleaning with normal saline and changing the dressing every other day for another week. Additional wound care supplies were provided. 3. Anticoagulation Management The patient is currently on post-operative Lovenox injections and will need to transition back to his long-term anticoagulant, Eliquis, in approximately 30 days. The patient will call the office to request a 90-day prescription for Eliquis with three refills, to be sent to [facility], when he is ready to make the switch. It was noted that [facility] had recently dispensed both Eliquis and Lovenox on the same day, and the danger of concurrent use was discussed. I discussed with the patient and his the logistical challenges they are facing in securing timely post-operative orthopedic and physical therapy care due to the lack of surgical records from his recent hip replacement in [facility]. I explained that while I cannot guarantee an earlier orthopedic appointment, I will contact my colleagues at [facility] to see if his visit can be expedited. We agreed to order a new hip X-ray to have up-to-date imaging. I issued a new referral for physical therapy to [facility] to bypass the issues encountered with the previous referral. I examined his surgical incision and was able to reassure them that it is healing very well and that a wound center referral is not necessary. I provided instructions for continued wound care for one more week. We also reviewed his anticoagulation plan, and I advised him to call in about 30 days for an Eliquis prescription and cautioned against taking it concurrently with Lovenox. We scheduled a follow-up appointment in two weeks to check on his progress with obtaining care and to monitor his wound. Orders: Orders XR hip LT w PEL1V Today Z96.642 - Presence of left artificial hip joint Patient Instructions: - For the next week, continue to care for your hip wound as you have been, changing the dressing every other day. - We have sent a referral for physical therapy to [facility] in [place]. - We are ordering a new X-ray of your hip. - I will contact you if we are able to get you an earlier appointment with the orthopedic doctor. - Do not take the Eliquis pills and the Lovenox shots at the same time. - Call our office in about 30 days to get a new 90-day prescription for your Eliquis. - Please schedule a follow-up visit here in two weeks.
[2025-03-02 11:35] VITALS: BP 149/68; PULSE 68; RESP 16; TEMP 36.8; O2SAT 98; BMI 24.0
--- OUTSIDE RECORDS SUMMARY | 2025-03-02 14:20 | XMS_ITS | Clinical Summary ---
Author Organization [address] [place] [address] [place] [phone] Phone Care Team Providers Care Produce Sorter Name Role Phone Mirella, Robert DONOVAN Primary Care Provider [phone] Allergies No known active allergies Medications flecainide [...] Date Aneurysm of ascending aorta without rupture ([facility] V24) 11/09/2024 Bradycardia 04/16/2023 Bruit of right [...] delay it until he is back from [place] in September 2023. I have placed an order for this to be scheduled within that timeframe. We will continue statin as ordered and readdress as needed; his PCP checks cholesterol once per year and the patient reports that he has an appointment scheduled with him on his return from [place] in September 2023. We will continue to follow. Secondary hypercoagulable state ([facility] V24) Essential hypertension 01/03/2022 Overview (05/30/2024): Last [...] Hypercholesteremia 01/03/2022 Palpitations 01/03/2022 Paroxysmal atrial fibrillation ([facility] V24, [facility] V28) 01/03/2022 Overview (05/30/2024): Last Assessment & Plan: The patient reports he has been doing very well and denies any palpitations since he was started on flecainide in August 2022, at which time he was seen by electrophysiology while he was in [place]. He continues to follow with a train caller in [place] 1-2 times per year. He remains very [...] Description 01/06/2025 3:30 PM EDT Ancillary Procedure [facility] - [address] [place] [address] Paroxysmal atrial fibrillation (CMS/HCC V24, CMS/HCC V28); Bradycardia; Aneurysm of ascending aorta without rupture (CMS/HCC V24) from Last 3 Months Surgical History Surgery Date Site/Laterality Comments VASECTOMY PROCEDURE: [place] VASECTOMY UNI/BI SPX W/POSTOP SEMEN EXAMS OTHER SURGICAL HISTORY Left PROCEDURE: HISTORY OTHER; COMMENT: Herniorraphy OTHER SURGICAL HISTORY PROCEDURE: [place] ANES XTRPRTL LWR ABD W/URINARY TRACT RAD PRSTECT KNEE ARTHROSCOPY 03/2018 PROCEDURE: [place] ARTHROSCOPY AID TX SPINE&/FX KNEE W/O FIXJ [...] (01/06/2025 4:12 PM EDT) Left Atrium Minor [place] 6.5 cm CV PACS Left Atrium Major [place] 5.7 cm CV PACS LA Area Sys [...] Volume 93 mL CV PACS MV Deceleration [place] 1.8 m/s2 CV PACS E Wave Deceleration [...] Last [address] [id number] MEDICARE [facility] Care Teams Produce Sorter Relationship Specialty Start Date End Date Robert Vu DO [address] [place] [phone] PCP - General Internal Medicine 12/02/21
== END 2025-03-02 12:15 | disposition home or self-care (01) ==
LOC: HO.HMCSH 11:25
PROVIDERS: PCP Physician Assistant Medical; Visit Provider Physician Assistant Medical
DX: Z96.642 Presence of left artificial hip joint (principal); Z79.01 Long term (current) use of anticoagulants; Z48.89 Encounter for other specified surgical aftercare

== ENCOUNTER 2025-03-02 11:25 | Outpatient (REF) | payer MEDICARE, OTHER, SELFPAY ==
--- NOTE | ~2025-03-02 | XR_ITS ---
EXAMINATION: XR HIP, LEFT CLINICAL INFORMATION: Z96.642 - Presence of left artificial hip joint COMPARISON: None available. TECHNIQUE: AP view pelvis. AP and oblique views of the left hip. FINDINGS: Total metallic prosthesis with an acetabular and femoral component well-seated in the osseous structures. The prosthesis intact. The alignment is normal. No acute cortical disruption. Osteopenia versus osteoporosis. No gross loosening. Vascular clips in the pelvis and inguinal region. XR/XR hip LT w PEL1V IMPRESSION: Total left hip arthroplasty prosthesis, intact without malalignment. Electronically signed by: Micah Khalil MD 03/02/2025 02:35 PM EDT
== END 2025-03-02 11:26 | disposition home or self-care (01) ==
LOC: HO.HMGCX 11:25
PROVIDERS: PCP Physician Assistant Medical; Visit Provider Physician Assistant Medical
DX: Z96.642 Presence of left artificial hip joint (principal); Z48.89 Encounter for other specified surgical aftercare; Z87.2 Personal history of diseases of the skin and subcutaneous tissue; Z79.01 Long term (current) use of anticoagulants
CPT/HCPCS: 73502; 96127; 99212

== ENCOUNTER → 2025-03-02 14:20 | Outpatient (BNV) | payer MEDICARE, OTHER, SELFPAY | PROVIDERS: PCP Physician Assistant Medical; Visit Provider Radiology Diagnostic Radiology | DX: Z96.642 Presence of left artificial hip joint (principal) | CPT/HCPCS: 73502 ==

== ENCOUNTER 2025-03-20 14:25 | Outpatient (AMB) | payer MEDICARE, OTHER, SELFPAY ==
[2025-03-20 14:49] VITALS: BP 134/62; PULSE 66; RESP 14; TEMP 36.2; O2SAT 99; BMI 24.5
--- NOTE | 2025-03-20 14:49 | A.OFFPC_ITS ---
Vital Signs 03/20/25 14:49 Height 5 ft 11.26 in Weight 177 lb BMI 24.5 BP 134/62 Blood Pressure Location Rt brachial Position Sitting Respiration 14 Pulse 66 Pulse Source Pulse Oximeter Temp 97.2 F Temp Source Temporal Artery Scan Pulse Oximetry (%) 99 Oxygen Delivery Method Room Air Intake Visit Reasons: 2 Week follow up Loader Operator Required: No Allergies No Known Allergies Allergy (Verified 03/20/25 15:12) Medication List - Last Reconciled 03/20/25 by Cary Chris PA-C enoxaparin (Lovenox) 40 mg (0.4 mL) subcut DAILY flecainide 50 mg PO BID 90 days lisinopril 10 mg PO DAILY metoprolol succinate ER 50 mg PO DAILY simvastatin 40 mg PO BEDTIME Tobacco use date assessed: 02/23/25 Dental Screening Dental Screen Date: 02/23/25 HPI HPI Comments History of Present Illness Details History of Present Illness The patient is a 79 year old male presenting with a two-week follow-up visit for a recent hip fracture. The patient sustained a hip fracture and underwent surgery in [facility]. He has a surgical report from the procedure, and a recent x- ray was performed which showed satisfactory results. He has an upcoming appointment with orthopedics at [facility]. He has been attending physical therapy sessions and using compression stockings to prevent blood clots. Past surgical history includes a prostatectomy. Social History - Exercise: The patient reports he canno t exercise as much as he used to. - Functional Status: The patient is curr ently attending physical therapy. - Nutrition: The patient reports having gained a few pounds in the last month. Results - Imaging: A recent hip x-ray was review ed and showed satisfactory results. - Imaging: The x-ray also revealed vascu lar clips consistent with his prior prostatectomy. ON LICENSE OF [facility] Medical History Encounter for postoperative wound care On anticoagulant therapy Elevated C-reactive protein (CRP) Hyponatremia High total iron binding capacity Elevated ferritin Anemia Full code status (~10/06/24) BPH (benign prostatic hyperplasia) Establishing care with new doctor, encounter for Prostate cancer Afib HLD (hyperlipidemia) HTN (hypertension) Surgical History History of total left hip replacement H/O inguinal hernia repair H/O colonoscopy (~10/23/23) History of radical prostatectomy (~2005) Family History Father No problems noted. Mother No problems noted. Social History Household Members: Spouse Housing: Condominium Are you a primary live in caregiver to a significant other at home: No Do you presently have visiting nurse or other home services: No Alcohol intake: current Alcohol intake frequency: holidays/special occasions only Patient Tobacco Use Status: Never used Tobacco service: Yes Current occupational status: retired Cognitive needs: No Hearing needs: Yes (b/l hearing aids) Vision needs: Yes (rx glasses) Questionnaire PHQ-9 Over the last 2 weeks, how often have you been bothered by any of the following problems? 1. Little interest or pleasure in doing things: not at all 2. Feeling down, depressed, or hopeless: not at all 3. Trouble falling or staying asleep, or sleeping too much: not at all 4. Feeling tired or having little energy: not at all 5. Poor appetite or overeating: not at all 6. Feeling bad about yourself - or that you are a failure or have let yourself or your family down: not at all 7. Trouble concentrating on things, such as reading the newspaper or watching television: not at all 8. Moving or speaking so slowly that other people could have noticed. Or the opposite - being so fidgety or restless that you have been moving around a lot more than usual: not at all 9. Thoughts that you would be better off or of hurting yourself in some way: not at all Total score: 0 Depression Screening Interpretation: Negative Depression Screening Done: Yes 27790 - PHQ-9 Billing: Yes Source: Developed by Drs. Robert Chen, Lilibeth Pryor, Armand Westbrook and colleagues, with an educational beto from [employer]. Thrive Questionnaire Date Thrive assessed: 02/23/25 I am a: Patient What is your living situation today?: I have a steady place to live Within the past 12 months, did the food you bought not last and you didn't have the money to get more?: Never true Within the past 12 months, did you worry whether your food would run out before you got money to buy more?: Never true Do you have trouble paying for medicines?: No Do you have trouble getting transportation to medical appointments?: No Do you have trouble paying your heating and electricity bill?: No Do you have trouble taking care of your child, family member or friend?: No Do you have trouble with day-to-day activities such as bathing, preparing meals, shopping, managing finances, etc.?: No Are you currently unemployed and looking for a job?: No Are you interested in more education?: No Please select the resources that you would like help with: None THRIVE Score: 0 AUDIT C Alcohol Use Questionnaire (AUDIT-C) 1. How often do you have a drink containing alcohol?: Monthly or less 2. How many drinks containing alcohol do you have on a typical day when you are drinking?: 1 or 2 3. How often do you have six or more drinks on one occasion?: Never Total Score: 1 Score Reviewed/Action Taken: No TONY-7 AMB Questionnaire TONY-7 Date TONY - 7 assessed: 02/23/25 Feeling nervous, anxious, or on edge: 0 = Not at all Not being able to stop or control worryin = Not at all Worrying too much about different things: 0 = Not at all Trouble relaxin = Not at all Being so restless that it is hard to sit still: 0 = Not at all Becoming easily annoyed or irritable: 0 = Not at all Feeling afraid as if something awful might happen: 0 = Not at all Total TONY-7 score (0-4 normal; 5-9 mild; 10-14 moderate; 15-21 severe): 0 Source: Developed by Drs. Robert Chen, Lilibeth Pryor, Armand Westbrook and colleagues, with an educational beto from [employer]. TONY-7 Assessment Billing TONY-7 Assessment Tool: TONY-7 Assessment 98882 Review of Systems Narrative Review of Systems - Constitutional: Reports gaining a few pounds. - Cardiovascular: Denies chest pain or pedal edema. - Respiratory: Denies dyspnea. - Musculoskeletal: Reports decreased ability to exercise. Const All systems reviewed & are unremarkable except as noted in HPI and below Physical exam (Primary Care) Vital Signs: Last Vital Signs Temp 97.2 F 03/20/25 14:49 Pulse 66 03/20/25 14:49 Resp 14 03/20/25 14:49 BP 134/62 03/20/25 14:49 Pulse Ox 99 03/20/25 14:49 Oxygen Delivery Method Room Air 03/20/25 14:49 Care Plan Goal for BP management: <140/90 at Goal BMI result Body Mass Index 24.5 normal BMI Tobacco/Smoking Status: Tobacco use Status Tobacco use date assessed 02/23/25 03/20/25 14:55 Patient Tobacco Use Status Never used Tobacco 03/20/25 14:55 PHQ-9: PHQ-9 Score PHQ-9: Total score 0 03/20/25 14:55 Depression Screening Interpretation: Negative Thrive Assessment: Date of Thrive Assessment Date Thrive assessed 02/23/25 03/20/25 14:55 Narrative Physical Exam Appearance: Alert. Oriented X3. No acute distress. Appears thinner than previous visits. Head: Normal external exam. Normocephalic. Atraumatic. Eyes: Pupils are equal, round, and reactive to light. Extraocular movements in tact. Conjunctiva and sclera normal. Eyelids normal. Throat: Pharynx normal. Uvula midline. Moist mucous membranes. Neck: Normal inspection. Neck supple. Full range of motion. Cardiovascular: Normal heart rate and rhythm. Respiratory: No respiratory distress. Painless inspiration. Back: Full range of motion noted. Skin: Skin warm and dry. Normal skin color. Normal skin turgor. No rashes/lesions/lacerations noted. Extremities: No lower extremity edema. No calf tenderness is noted. Left surgical scar has completely healed. No signs of infection. Extremities exhibit normal range of motion. Patient has been wearing compression socks due to risk of blood clots post-surgery. Neuro: Oriented X 3. No motor deficit. No sensory deficit. Reflexes normal. Results Reviewed Results Reviewed: - Imaging: A recent hip x-ray was reviewed and showed satisfactory results. - Imaging: The x-ray also revealed vascular clips consistent with his prior prostatectomy. Coding Level of Care Code Est Pt Level 4 (23851) Complex EM visit Add On G2211 Diagnoses History of total left hip replacement Z96.642 Additional Codes TONY-7 Assessment Billing - TONY-7 Assessment Tool: TONY-7 Assessment 43594 ([id number]) PHQ-9 - 76133 - PHQ-9 Billing: Yes ([id number]) Assessment & Plan Assessment & Plan (1) History of total left hip replacement: Comment: 02/18/25 in [facility] Code(s): Z96.642 - Presence of left artificial hip joint Category: Surgical Plan: The patient's hip surgical incision is now well-healed. The patient no longer needs to cover the incision with a bandage or protect it during showers. He will continue with physical therapy and has a follow-up appointment scheduled with orthopedics at [facility]. A copy of the surgical report from [facility] and the recent hip x-ray images will be sent to the orthopedics office. Plan Plan Patient was informed and verbally consented to the use of an ambient scribe for clinic note documentation during this visit. 1. Follow-Up After Hip Fracture Repair The patient's hip surgical incision is now well-healed. The patient no longer needs to cover the incision with a bandage or protect it during showers. He will continue with physical therapy and has a follow-up appointment scheduled with orthopedics at [facility]. A copy of the surgical report from [facility] and the recent hip x-ray images will be sent to the orthopedics office. 2. Prophylaxis For Deep Vein Thrombosis The patient is at an increased risk for deep vein thrombosis for up to one year postoperatively. He has been wearing compression stockings and is advised to continue. Discussion Notes I examined the patient's hip surgical incision and confirmed that it is well- healed, and he no longer needs to keep it covered or bandaged, including during showers. We discussed that his recent hip x-ray showed satisfactory findings. I advised him to continue with physical therapy and to keep his scheduled orthopedic appointment. I will send a copy of his surgical report from [facility] and his recent x-ray images to the medicaid billing specialist for their review. We a lso reviewed the ongoing risk of blood clots and the importance of continuing to wear compression socks. Patient Instructions: Patient Instructions - You no longer need to put a bandage on your hip incision. - It is now safe to let the surgical site get wet in the shower. - Continue to wear your compression socks to help prevent blood clots. - Continue with your physical therapy sessions. - Attend your scheduled follow-up appointment with the medicaid billing specialist.
--- OUTSIDE RECORDS SUMMARY | 2025-03-21 04:30 | XMS_ITS | Clinical Summary ---
Author Organization [address] [place] [address] [place] [phone] Phone Care Team Providers Care Driver Examiner Name Role Phone Mirella, Robert DONOVAN Primary Care Provider [phone] Allergies No known active allergies Medications flecainide [...] Date Aneurysm of ascending aorta without rupture ([facility] V24) 11/09/2024 Bradycardia 04/16/2023 Bruit of right [...] delay it until he is back from [place] in September 2023. I have placed an order for this to be scheduled within that timeframe. We will continue statin as ordered and readdress as needed; his PCP checks cholesterol once per year and the patient reports that he has an appointment scheduled with him on his return from [place] in September 2023. We will continue to follow. Secondary hypercoagulable state ([facility] V24) Essential hypertension 01/03/2022 Overview (05/30/2024): Last [...] Hypercholesteremia 01/03/2022 Palpitations 01/03/2022 Paroxysmal atrial fibrillation ([facility] V24, [facility] V28) 01/03/2022 Overview (05/30/2024): Last Assessment & Plan: The patient reports he has been doing very well and denies any palpitations since he was started on flecainide in August 2022, at which time he was seen by electrophysiology while he was in [place]. He continues to follow with a service unit operator oil well in [place] 1-2 times per year. He remains very [...] Description 01/06/2025 3:30 PM EDT Ancillary Procedure [facility] - [address] [place] [address] Paroxysmal atrial fibrillation (CMS/HCC V24, CMS/HCC V28); Bradycardia; Aneurysm of ascending aorta without rupture (CMS/HCC V24) from Last 3 Months Surgical History Surgery Date Site/Laterality Comments VASECTOMY PROCEDURE: CT VASECTOMY UNI/BI SPX W/POSTOP SEMEN EXAMS OTHER SURGICAL HISTORY Left PROCEDURE: HISTORY OTHER; COMMENT: Herniorraphy OTHER SURGICAL HISTORY PROCEDURE: CT ANES XTRPRTL LWR ABD W/URINARY TRACT RAD PRSTECT KNEE ARTHROSCOPY 03/2018 PROCEDURE: CT ARTHROSCOPY AID TX SPINE&/FX KNEE W/O FIXJ [...] (01/06/2025 4:12 PM EDT) Left Atrium Minor [place] 6.5 cm CV PACS Left Atrium Major [place] 5.7 cm CV PACS LA Area Sys [...] Volume 93 mL CV PACS MV Deceleration [place] 1.8 m/s2 CV PACS E Wave Deceleration [...] Last [address] [id number] MEDICARE [facility] Care Teams Driver Examiner Relationship Specialty Start Date End Date Robert Vu DO [address] [place] [phone] PCP - General Internal Medicine 12/02/21
== END 2025-03-20 15:11 | disposition home or self-care (01) ==
LOC: HO.HMCSH 14:25
PROVIDERS: PCP Physician Assistant Medical; Visit Provider Physician Assistant Medical
DX: Z96.642 Presence of left artificial hip joint (principal)

== ENCOUNTER → 2025-03-20 14:25 | Outpatient (BNVA) | payer MEDICARE, OTHER, SELFPAY | PROVIDERS: PCP Physician Assistant Medical; Visit Provider Physician Assistant Medical | DX: Z47.1 Aftercare following joint replacement surgery (principal); Z96.642 Presence of left artificial hip joint; Z86.718 Personal history of other venous thrombosis and embolism | CPT/HCPCS: 96127; 99212 ==

== ENCOUNTER 2025-03-29 07:23 | Outpatient (REF) | payer MEDICARE, OTHER, SELFPAY ==
--- NOTE | ~2025-03-29 | XR_ITS ---
EXAMINATION: XR HIP 2 OR MORE VIEWS LEFT HISTORY: M25.552 - Pain in left hip COMPARISON: Comparison is made with the prior examination dated 03/02/2025. FINDINGS: A single AP view of the pelvis and 2 views of the left hip are submitted. The patient is again noted to be status post left total hip arthroplasty. The orthopedic elements are in anatomic alignment. There is no radiographic evidence of loosening. There is no fracture or dislocation. There are multiple surgical clips in the pelvis. XR/XR hip LT min 2V IMPRESSION: Status post left total hip arthroplasty. Electronically signed by: Robert Handley MD 03/29/2025 01:41 PM [facility]
--- OUTSIDE RECORDS SUMMARY | 2025-04-01 07:25 | XMS_ITS | Clinical Summary ---
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 I have placed an order for this to be scheduled within that timeframe. We will continue statin as ordered and readdress as needed; his PCP checks cholesterol once per year and the patient reports that he has an appointment scheduled with him on his return from [place] in September 2023. We will continue to follow. Secondary hypercoagulable state ([facility] V24) Essential hypertension 01/03/2022 Overview (05/30/2024): Last [...] Hypercholesteremia 01/03/2022 Palpitations 01/03/2022 Paroxysmal atrial fibrillation ([facility] V24, [facility] V28) 01/03/2022 Overview (05/30/2024): Last Assessment & Plan: The patient reports he has been doing very well and denies any palpitations since he was started on flecainide in August 2022, at which time he was seen by electrophysiology while he was in [place]. 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 He remains very [...] Description 01/06/2025 3:30 PM EDT Ancillary Procedure [facility] - [address] [place] [address] Paroxysmal atrial fibrillation (CMS/HCC V24, CMS/HCC V28); Bradycardia; Aneurysm of ascending aorta without rupture (CMS/HCC V24) from Last 3 Months Surgical History Surgery Date Site/Laterality Comments VASECTOMY PROCEDURE: IA VASECTOMY UNI/BI SPX W/POSTOP SEMEN EXAMS OTHER SURGICAL HISTORY Left PROCEDURE: HISTORY OTHER; COMMENT: Herniorraphy OTHER SURGICAL HISTORY PROCEDURE: IA ANES XTRPRTL LWR ABD W/URINARY TRACT RAD PRSTECT KNEE ARTHROSCOPY 03/2018 PROCEDURE: IA ARTHROSCOPY AID TX SPINE&/FX KNEE W/O FIXJ [...] (01/06/2025 4:12 PM EDT) Left Atrium Minor Lohn 6.5 cm CV PACS Left Atrium Major Lohn 5.7 cm CV PACS LA Area Sys [...] Volume 93 mL CV PACS MV Deceleration Wagoner 1.8 m/s2 CV PACS E Wave Deceleration [...] Last [address] [id number] MEDICARE [employer] Care Teams Electric Motor And Generator Assembler Relationship Specialty Start Date End Date Robert Vu DO [address] [place] [phone] PCP - General Internal Medicine 12/02/21
== END 2025-03-29 07:24 | disposition home or self-care (01) ==
LOC: HO.HOSX 07:23
PROVIDERS: Visit Provider Physician Assistant
DX: Z47.1 Aftercare following joint replacement surgery (principal); Z96.642 Presence of left artificial hip joint
CPT/HCPCS: 73502; 99212

== ENCOUNTER 2025-03-29 12:57 | Outpatient (AMB) | payer MEDICARE, OTHER, SELFPAY ==
--- NOTE | 2025-03-29 13:05 | MHC.OFFVIS ---
Intake Visit Reasons: Pain post hip replacement 02/18/25 Intake Note: Jordan is a 79 year old male who presents today as a new patient for an evaluation of left hip status post surgical intervention performed in [facility]. Patient reports on a cruise when he had a fall while walking outside of the ship on a tour. He was brought back to the ship for x-rays, confirming a fracture, he was advised to leave [facility] and report to [facility]. He was transfered to [facility], Dr. Gisselle Thompson performed a total hip replacement. He was seen by PCP who referred to therapy and check on incision area. He is attending physical therapy at [facility] in [place]. Allergies No Known Allergies Allergy (Verified 03/29/25 13:17) Medication List - Last Reconciled 03/29/25 by Marcy John PA-C amoxicillin 2,000 mg (4 x 500 mg) PO ONCE 1 day enoxaparin (Lovenox) 40 mg (0.4 mL) subcut DAILY flecainide 50 mg PO BID 90 days lisinopril 10 mg PO DAILY metoprolol succinate ER 50 mg PO DAILY simvastatin 40 mg PO BEDTIME HPI HPI Pain post hip replacement 02/18/25: Details: 79-year-old gentleman presents to the office today for an injury he sustained to his left hip while on vacation in [facility]. He states he was on a biking walking tore in [facility] when he fell on the left side after stepping into a side walk pothole. He was unable to get up and ambulate therefore he was brought to the hospital for evaluation which later led to a left total hip arthroplasty. He remained in [facility] recovering until February 22 at which point he returned back home in [facility]. Patient has AFib and is on Eliquis 5 mg b.i.d. which was on hold for surgery. Postoperatively he was taking Lovenox which she recently stopped and resumed his home dose of Eliquis on March 26. Patient is currently attending physical therapy. Towards the end of the year the patient will be going down to [place] where he resides until late spring or early summer. [facility] Medical History Encounter for postoperative wound care On anticoagulant therapy Elevated C-reactive protein (CRP) Hyponatremia High total iron binding capacity Elevated ferritin Anemia Full code status (~10/06/24) BPH (benign prostatic hyperplasia) Establishing care with new doctor, encounter for Prostate cancer Afib HLD (hyperlipidemia) HTN (hypertension) Surgical History History of total left hip replacement H/O inguinal hernia repair H/O colonoscopy (~10/23/23) History of radical prostatectomy (~2005) Family History Father No problems noted. Mother No problems noted. Social History Household Members: Spouse Housing: Condominium Are you a primary career development associate to a significant other at home: No Do you presently have visiting nurse or other home services: No Alcohol intake: current Alcohol intake frequency: holidays/special occasions only Patient Tobacco Use Status: Never used Tobacco service: Yes Current occupational status: retired Cognitive needs: No Hearing needs: Yes (b/l hearing aids) Vision needs: Yes (rx glasses) Review of Systems Const All systems reviewed & are unremarkable except as noted in HPI and below Physical Exam Const General: cooperative and no acute distress Orientation/consciousness: patient oriented x3 Resp Effort & Inspection: normal respiratory effort and able to speak in complete sentences Cardio Peripheral pulses: Peripheral pulses 2+ throughout Neuro General: patient oriented x3 Extrem Other: Left hip surgical scar is well healed. No surrounding erythema or swelling. He has no pain with range of motion, hip flexion abduction or adduction. Calf supple and nontender neurovascularly intact. Results Reviewed Results Reviewed: X-rays of the left hip obtained in the office today show total hip are arthroplasty with good positioning and no evidence of loosening Assessment & Plan Assessment & Plan (1) History of total left hip replacement: Comment: 02/18/25 in [place] Code(s): Z96.642 - Presence of left artificial hip joint Category: Surgical Plan: I explained to the patient the injury he sustained and the surgical procedure he underwent. The patient states he was told by the physician in [place] that he had hip precautions. I explained to the patient what those hip precautions typically are and they should be in place for at least 3 months but to use caution at all times. I explained to the patient he will require antibiotics for any dental visits. He should wait until 3 months postop to have a cleaning. I did send him a prescription for amoxicillin which she will take with him to [place] as he does see a dentist down in [place]. The patient will continue working with physical therapy for gait training strength, lumbar and core stabilization. Since he is going to [place] in the end of April I encouraged him to meet up with an orthopedic provider in [place] if there is any concerns otherwise he can see me once he returns back to [place] in the late sprain. He will call if there is any questions or concerns. Orders: Orders XR hip LT min 2V Today M25.552 - Pain in left hip Medications: New amoxicillin take 4 capsules 1 hr prior to dental procedure 2,000 mg (4 x 500 mg) PO ONCE 4 tabs 3RF 1 day Coding Level of Care Code Complex visit Add On G2211 Diagnoses History of total left hip replacement Z96.642
--- OUTSIDE RECORDS SUMMARY | 2025-03-29 15:59 | XMS_ITS | Clinical Summary ---
Author Organization [address] [place] [address] [place] [phone] Phone Care Team Providers Care Manager Combination Name Role Phone Mirella, Robert DONOVAN Primary Care Provider [phone] Allergies No known active allergies Medications flecainide [...] Date Aneurysm of ascending aorta without rupture ([facility] V24) 11/09/2024 Bradycardia 04/16/2023 Bruit of right [...] delay it until he is back from [place] in September 2023. I have placed an order for this to be scheduled within that timeframe. We will continue statin as ordered and readdress as needed; his PCP checks cholesterol once per year and the patient reports that he has an appointment scheduled with him on his return from [place] in September 2023. We will continue to follow. Secondary hypercoagulable state ([facility] V24) Essential hypertension 01/03/2022 Overview (05/30/2024): Last [...] Hypercholesteremia 01/03/2022 Palpitations 01/03/2022 Paroxysmal atrial fibrillation ([facility] V24, [facility] V28) 01/03/2022 Overview (05/30/2024): Last Assessment & Plan: The patient reports he has been doing very well and denies any palpitations since he was started on flecainide in August 2022, at which time he was seen by electrophysiology while he was in [place]. He continues to follow with a project accountant in [place] 1-2 times per year. He remains very [...] Description 01/06/2025 3:30 PM EDT Ancillary Procedure [facility] - [address] [place] [address] Paroxysmal atrial fibrillation (CMS/HCC V24, CMS/HCC V28); Bradycardia; Aneurysm of ascending aorta without rupture (CMS/HCC V24) from Last 3 Months Surgical History Surgery Date Site/Laterality Comments VASECTOMY PROCEDURE: UT VASECTOMY UNI/BI SPX W/POSTOP SEMEN EXAMS OTHER SURGICAL HISTORY Left PROCEDURE: HISTORY OTHER; COMMENT: Herniorraphy OTHER SURGICAL HISTORY PROCEDURE: UT ANES XTRPRTL LWR ABD W/URINARY TRACT RAD PRSTECT KNEE ARTHROSCOPY 03/2018 PROCEDURE: UT ARTHROSCOPY AID TX SPINE&/FX KNEE W/O FIXJ [...] (01/06/2025 4:12 PM EDT) Left Atrium Minor [place] 6.5 cm CV PACS Left Atrium Major [place] 5.7 cm CV PACS LA Area Sys [...] Volume 93 mL CV PACS MV Deceleration [place] 1.8 m/s2 CV PACS E Wave Deceleration [...] Last [address] [place] [id number] MEDICARE [facility] Care Teams Manager Combination Relationship Specialty Start Date End Date Robert Vu DO [address] [place] [phone] PCP - General Internal Medicine 12/02/21
== END 2025-03-29 13:54 | disposition home or self-care (01) ==
LOC: HO.HOS 12:57
PROVIDERS: PCP Physician Assistant Medical; Visit Provider Physician Assistant
DX: Z47.89 Encounter for other orthopedic aftercare (principal); Z96.642 Presence of left artificial hip joint
CPT/HCPCS: 99213; G2211

== ENCOUNTER → 2025-03-29 13:00 | Outpatient (BNV) | payer MEDICARE, OTHER, SELFPAY | PROVIDERS: Visit Provider Radiology Diagnostic Radiology | DX: M25.552 Pain in left hip (principal); Z96.642 Presence of left artificial hip joint | CPT/HCPCS: 73502 ==

== ENCOUNTER → 2025-04-10 09:40 | Outpatient (BNV) | payer MEDICARE, OTHER, SELFPAY | PROVIDERS: PCP Internal Medicine; Referring Provider Internal Medicine; Visit Provider Nurse Practitioner Family | DX: D64.9 Anemia, unspecified (principal); D72.810 Lymphocytopenia; Z85.46 Personal history of malignant neoplasm of prostate | CPT/HCPCS: 99204; 99213 ==